=== PATIENT | female | born 1940 | race Caucasian/White ===

== ENCOUNTER 2016-10-17 09:00 | Inpatient (IN) | payer OTHER ==
[~2016-10-17] VITALS: Ht 165.1 cm; Wt 72.3 kg
[~2016-10-17 09:00] MED LIST: AMLO5TAB2 PO; ASPI-430 PO; ASPI325T4 PO; DILT120C11 PO; DOXY100T PO; FERR325T20 PO; FLUT12AE5 INH; FURO20TA3 PO; FURO40TA6 PO; LISI-170 PO; METO-95 PO; NAPR220C2 PO; OMEG300C PO; OMEP-110 PO; PRED20TA PO; RIVA20TA PO; SIMV20TA3 PO; UMEC1DIS INH
[2016-10-17] MEDS ORDERED: ALBUTEROL/IPRATROPIUM 2.5MG/0.5MG, 3 ML ONE (09:09)
[2016-10-17] MEDS ORDERED: methylPREDNISolone SOD SUCC 125 MG/2 ML ONE (09:19)
[2016-10-17] MEDS ORDERED: ALBUTEROL/IPRATROPIUM 2.5MG/0.5MG, 3 ML NPPB ONE (09:30)
[2016-10-17] MEDS ORDERED: methylPREDNISolone SOD SUCC 125 MG/2 ML IVP ONE (09:30)
[2016-10-17 09:38] LABS: HEMOGLOBIN 11.3 g/dL (11.7-16.4)
[2016-10-17 09:40] LABS: ABG COLLECTION SITE RIGHT RADIAL; COLLATERAL CIRCULATION TESTING NORMAL
[2016-10-17 09:41] LABS: FIO2 45 %
[2016-10-17 09:50] LABS: ASPARTATE AMINO TRANSFERASE 12 U/L (15-37); BLOOD UREA NITROGEN 17 mg/dL (7-18)
[2016-10-17 10:01] LABS: IS PT STATUS REG ER OR PRE ER? YES
[2016-10-17] MEDS ORDERED: DILTIAZEM 125 MG in SODIUM CHLORIDE 0.9% 100 ML IV PRN ×2 (10:11→21:30)
[2016-10-17] MEDS ORDERED: DILTIAZEM 5 MG/ML, 5ML ONE (10:21)
[2016-10-17] MEDS ORDERED: DILTIAZEM 5 MG/ML, 5ML IVPush ONE (10:30)
[2016-10-17] MEDS ORDERED: ACETAMINOPHEN 325 MG TABLET PO PRN (11:00)
[2016-10-17] MEDS ORDERED: LABETALOL 5MG/ML, 20ML IV PRN (11:00)
[2016-10-17] MEDS: methylPREDNISolone SOD SUCC 40 MG/ML IVPush SCH ×3 (11:00→22:51)
[2016-10-17] MEDS: ALBUTEROL/IPRATROPIUM 2.5MG/0.5MG, 3 ML NPPB SCH ×3 (14:45→22:13)
[2016-10-17] MEDS ORDERED: ALBUTEROL/IPRATROPIUM 2.5MG/0.5MG, 3 ML NPPB SCH (15:00)
[2016-10-17] MEDS: INSULIN ASPART 100 UNITS/ML, PEN SQ-INSULIN SCH ×2 (16:00→20:50)
[2016-10-17 16:35] LABS: IS PT STATUS REG ER OR PRE ER? NO
[2016-10-17 17:14] VITALS: BP 125/60
[2016-10-17] MEDS: FERROUS SULFATE 325 MG TABLET PO SCH (20:46)
[2016-10-17] MEDS ORDERED: OMEPRAZOLE 20 MG CAPSULE.DR PO SCH (21:00)
[2016-10-18] MEDS: ALBUTEROL/IPRATROPIUM 2.5MG/0.5MG, 3 ML NPPB SCH ×5 (01:47→21:57)
[2016-10-18 04:00] VITALS: BP 122/66
[2016-10-18 04:46] LABS: HEMOGLOBIN 10.4 g/dL (11.7-16.4)
[2016-10-18 04:47] LABS: ABG COLLECTION SITE RIGHT RADIAL; COLLATERAL CIRCULATION TESTING NORMAL
[2016-10-18 04:56] LABS: BLOOD UREA NITROGEN 22 mg/dL (7-18)
[2016-10-18] MEDS: methylPREDNISolone SOD SUCC 40 MG/ML IVPush SCH ×3 (04:59→15:46)
[2016-10-18] MEDS: INSULIN ASPART 100 UNITS/ML, PEN SQ-INSULIN SCH ×4 (07:00→19:41)
[2016-10-18] MEDS ORDERED: POTASSIUM CHLORIDE 20 MEQ in SODIUM CHLORIDE 0.45% 1,000 ML IV SCH (07:30)
[2016-10-18] MEDS ORDERED: AZITHROMYCIN 500 MG in SODIUM CHLORIDE 0.9% 250 ML IV SCH (07:30)
[2016-10-18] MEDS: FERROUS SULFATE 325 MG TABLET PO SCH ×2 (08:15→19:44)
[2016-10-18] MEDS: PANTOPROZOLE 40MG TABLET PO SCH (08:15)
[2016-10-18] MEDS: LISINOPRIL 20 MG TABLET PO SCH (08:15)
[2016-10-18] MEDS: RIVAROXABAN 20 MG TABLET PO SCH (08:16)
[2016-10-18] MEDS: FUROSEMIDE 40 MG TABLET PO SCH (08:16)
[2016-10-18] MEDS ORDERED: DIGOXIN 0.25 MG TABLET PO ONE (11:30)
[2016-10-18] MEDS ORDERED: FUROSEMIDE 20 MG/2 ML IV ONE (16:30)
[2016-10-18] MEDS: DIGOXIN 0.25 MG TABLET PO SCH (16:55)
[2016-10-19] MEDS: DIGOXIN 0.25 MG TABLET PO SCH ×2 (00:08→04:46)
[2016-10-19] MEDS: methylPREDNISolone SOD SUCC 40 MG/ML IVPush SCH ×5 (00:09→22:48)
[2016-10-19] MEDS: ALBUTEROL/IPRATROPIUM 2.5MG/0.5MG, 3 ML NPPB SCH ×6 (02:23→22:00)
[2016-10-19 04:56] VITALS: BP 111/52
[2016-10-19 05:10] LABS: BLOOD UREA NITROGEN 27 mg/dL (7-18)
[2016-10-19] MEDS: FERROUS SULFATE 325 MG TABLET PO SCH ×2 (07:40→20:48)
[2016-10-19] MEDS: RIVAROXABAN 20 MG TABLET PO SCH (07:40)
[2016-10-19] MEDS: LISINOPRIL 20 MG TABLET PO SCH (07:41)
[2016-10-19] MEDS: AZITHROMYCIN 500 MG TABLET PO SCH (07:41)
[2016-10-19] MEDS: PANTOPROZOLE 40MG TABLET PO SCH (07:41)
[2016-10-19] MEDS: FUROSEMIDE 40 MG TABLET PO SCH (07:41)
[2016-10-19] MEDS: INSULIN ASPART 100 UNITS/ML, PEN SQ-INSULIN SCH (07:52)
[2016-10-19] MEDS ORDERED: DIGOXIN 0.125 MG TABLET PO SCH (12:00)
[2016-10-19 13:49] VITALS: BP 114/53
[2016-10-19 19:26] VITALS: BP 123/58
[2016-10-20] MEDS: ALBUTEROL/IPRATROPIUM 2.5MG/0.5MG, 3 ML NPPB SCH ×6 (01:59→23:49)
[2016-10-20 02:38] VITALS: BP 114/63
[2016-10-20] MEDS: methylPREDNISolone SOD SUCC 40 MG/ML IVPush SCH (04:54)
[2016-10-20 07:25] VITALS: BP 134/40
[2016-10-20] MEDS: METOPROLOL SUCCINATE 50 MG TAB.ER.24H PO SCH (08:22)
[2016-10-20] MEDS: RIVAROXABAN 20 MG TABLET PO SCH (08:23)
[2016-10-20] MEDS: FUROSEMIDE 40 MG TABLET PO SCH (08:23)
[2016-10-20] MEDS: PANTOPROZOLE 40MG TABLET PO SCH (08:23)
[2016-10-20] MEDS: FERROUS SULFATE 325 MG TABLET PO SCH ×2 (08:23→21:00)
[2016-10-20] MEDS: LISINOPRIL 20 MG TABLET PO SCH (08:23)
[2016-10-20] MEDS: AZITHROMYCIN 500 MG TABLET PO SCH (08:23)
[2016-10-20 13:23] VITALS: BP 125/70
[2016-10-20] MEDS ORDERED: FUROSEMIDE 20 MG/2 ML IV ONE (13:30)
[2016-10-20] MEDS: GUAIFENESIN 200 MG TABLET PO SCH ×3 (13:30→21:00)
[2016-10-20 20:05] VITALS: BP 105/74
[2016-10-21 02:08] VITALS: BP 120/78
[2016-10-21] MEDS: ALBUTEROL/IPRATROPIUM 2.5MG/0.5MG, 3 ML NPPB SCH ×4 (03:29→13:50)
[2016-10-21 05:35] VITALS: BP 130/70
[2016-10-21] MEDS: METOPROLOL SUCCINATE 50 MG TAB.ER.24H PO SCH (05:49)
[2016-10-21] MEDS: GUAIFENESIN 200 MG TABLET PO SCH ×2 (05:49→11:23)
[2016-10-21 06:39] LABS: BLOOD UREA NITROGEN 30 mg/dL (7-18)
[2016-10-21] MEDS: PANTOPROZOLE 40MG TABLET PO SCH (07:54)
[2016-10-21] MEDS: RIVAROXABAN 20 MG TABLET PO SCH (07:54)
[2016-10-21] MEDS: FUROSEMIDE 40 MG TABLET PO SCH (07:55)
[2016-10-21] MEDS: LISINOPRIL 20 MG TABLET PO SCH (07:55)
[2016-10-21] MEDS: FERROUS SULFATE 325 MG TABLET PO SCH (07:55)
[2016-10-21 07:59] VITALS: BP 135/69
[2016-10-21] MEDS ORDERED: METO100T11 PO (10:18)
[2016-10-21] MEDS ORDERED: PRED20TA PO (10:18)
[2016-10-21] MEDS ORDERED: PRED10TA PO (11:59)
== END 2016-10-21 14:05 | disposition home or self-care (01) | DRG 291 ==
LOC: ED 09:17 → EDIP 10:24 → CSU 14:46 → 5SO 10-19 10:48
PROVIDERS: ADMIT Family Medicine; ATTEND Family Medicine
PROC: 5A09457 Assistance with Respiratory Ventilation, 24-96 Consecutive Hours, Continuous Positive Airway Pressure (ICD-10-PCS; principal; 2016-10-18)
DX: I11.0 Hypertensive heart disease with heart failure (principal); J96.20 Acute and chronic respiratory failure, unspecified whether with hypoxia or hypercapnia; J44.1 Chronic obstructive pulmonary disease with (acute) exacerbation; D68.59 Other primary thrombophilia; E87.2 Acidosis; I50.33 Acute on chronic diastolic (congestive) heart failure; I48.0 Paroxysmal atrial fibrillation; I27.2 Other secondary pulmonary hypertension; I48.2 Chronic atrial fibrillation; D50.9 Iron deficiency anemia, unspecified; I08.1 Rheumatic disorders of both mitral and tricuspid valves; Z51.5 Encounter for palliative care; Z90.710 Acquired absence of both cervix and uterus; Z87.891 Personal history of nicotine dependence; Z87.11 Personal history of peptic ulcer disease; Z79.01 Long term (current) use of anticoagulants; Z66 Do not resuscitate
CPT/HCPCS: 36415; 36600; 71010; 80048; 80053; 80162; 82040; 82803; 82962; 83605; 83735; 83880; 84100; 84145; 84484; 85025; 85610; 87040; 87081; 93005; 94640; 94660; 96374; 96375; J0456; J3480; J7620; J1940; J2920; J2930; J7050; J7512; Q0177

== ENCOUNTER 2017-10-11 01:01 | Inpatient (IN) | payer OTHER ==
[~2017-10-11] VITALS: Ht 165.1 cm; Wt 82.5 kg
[~2017-10-11 01:01] MED LIST changes: +ASPI325T17 PO; -ASPI325T4 PO; +FERR325T18 PO; -FERR325T20 PO; +METO-290 PO; +PRED10TA PO
[2017-10-11] MEDS ORDERED: CEFTRIAXONE PMX 1GM/50ML 50 ML ONE (01:25)
[2017-10-11] MEDS ORDERED: ONDANSETRON 2MG/ML, 2ML ONE (01:25)
[2017-10-11] MEDS ORDERED: methylPREDNISolone SOD SUCC 125 MG/2 ML ONE (01:25)
[2017-10-11] MEDS ORDERED: ALBUTEROL 0.5%, 20ML NPPB SCH (01:30)
[2017-10-11] MEDS ORDERED: SODIUM CHLORIDE 0.9% 1,000ML IVBOLUS ONE ×2 (01:30→02:00)
[2017-10-11] MEDS ORDERED: AZITHROMYCIN 500 MG in SODIUM CHLORIDE 0.9% 250 ML IVPB ONE (01:30)
[2017-10-11] MEDS ORDERED: CEFTRIAXONE PMX 1GM/50ML 50 ML IVPB ONE (01:30)
[2017-10-11] MEDS ORDERED: methylPREDNISolone SOD SUCC 125 MG/2 ML IVP ONE (01:30)
[2017-10-11] MEDS ORDERED: IPRATROPIUM 0.5 MG/2.5 ML INHA NPPB SCH (01:30)
[2017-10-11] MEDS ORDERED: SODIUM CHLORIDE FLUSH 10ML SYR IVF ONE (01:30)
[2017-10-11] MEDS ORDERED: ONDANSETRON 2MG/ML, 2ML IVP ONE (01:30)
[2017-10-11] MEDS ORDERED: SODIUM CHLORIDE 0.9% 1,000 ML IV ONE (01:34)
[2017-10-11 01:44] LABS: INTERNATIONAL NORMALIZED RATIO 1.13 (0.93-1.1); PROTHROMBIN TIME 11.7 Seconds (9.6-11.5)
[2017-10-11 01:46] LABS: BASOPHILS # (AUTO) 0.04 x10^3/uL (0-0.1); BASOPHILS % (AUTO) 0 % (0-1); EOSINOPHILS # (AUTO) 0.31 x10^3/uL (0-0.4); EOSINOPHILS % (AUTO) 3 % (1-7); LYMPHOCYTES # (AUTO) 1.85 x10^3/uL (1-3.4); LYMPHOCYTES % (AUTO) 20 % (22-44); MD NO; MEAN CORPUSCULAR HEMOGLOBIN 29.9 pg (27.0-34.8); MEAN CORPUSCULAR HGB CONC 30.8 g/dL (32.4-35.8); MEAN CORPUSCULAR VOLUME 97.1 fL (80-100); MEAN PLATELET VOLUME 8.9 fL (7.4-10.4); MONOCYTES # (AUTO) 0.88 x10^3/uL (0.2-0.8); MONOCYTES % (AUTO) 9 % (2-9); NEUTROPHILS % (AUTO) 68 % (42-75); PLATELET COUNT 294 x10^3/uL (130-400); RED BLOOD COUNT 4.12 x10^6/uL (3.82-5.3); RED CELL DISTRIBUTION WIDTH 15.7 % (9.6-15.2)
[2017-10-11 01:48] LABS: ALANINE AMINOTRANSFERASE 18 U/L (12-78); ALBUMIN 3.5 g/dL (3.4-5.0); ANION GAP 4 mmol/L (5-15); CALCIUM 8.6 mg/dL (8.5-10.1); CHLORIDE 100 mmol/L (98-107); CREATININE 1.07 mg/dL (0.55-1.02)
[2017-10-11 01:52] LABS: ALKALINE PHOSPHATASE 109 U/L (45-117); BILIRUBIN,TOTAL 0.5 mg/dL (0.2-1.0); TOTAL PROTEIN 7.4 g/dL (6.4-8.2); TROPONIN I < 0.015 ng/mL (0.000-0.045)
[2017-10-11] MEDS ORDERED: MIDAZOLAM 1 MG/ML, 5ML IVPush ONE (02:00)
[2017-10-11] MEDS ORDERED: ETOMIDATE 20 MG/10 ML IV ONE (02:00)
[2017-10-11] MEDS ORDERED: SUCCINYLCHOLINE 20 MG/ML, 10ML IVPush ONE (02:00)
[2017-10-11] MEDS ORDERED: DILTIAZEM 5 MG/ML, 5ML ONE (02:25)
[2017-10-11] MEDS ORDERED: DILTIAZEM 5 MG/ML, 5ML IVPush ONE (02:30)
[2017-10-11] MEDS ORDERED: MIDAZOLAM HCL 25 MG in SODIUM CHLORIDE 0.9% 245 ML IV PRN (02:40)
[2017-10-11] MEDS ORDERED: FAMOTIDINE 20 MG/2 ML IV SCH (03:00)
[2017-10-11] MEDS ORDERED: AZITHROMYCIN 500 MG in SODIUM CHLORIDE 0.9% 250 ML IVPB SCH (03:00)
[2017-10-11] MEDS ORDERED: PHARMACY MAY ADJ FOR RENAL FX MC PRN (03:00)
[2017-10-11] MEDS ORDERED: LIDOCAINE-MPF 1%, 2ML ENDO PRN (03:00)
[2017-10-11] MEDS ORDERED: MIDAZOLAM 1 MG/ML, 2ML IVPush PRN (03:00)
[2017-10-11 03:15] LABS: CULTURE INDICATED? YES; MICROSCOPIC INDICATED
[2017-10-11] MEDS: methylPREDNISolone SOD SUCC 40 MG/ML IV SCH ×3 (03:30→19:39)
[2017-10-11] MEDS: SODIUM CHLORIDE 0.9%, 500ML IVBOLUS PRN ×4 (03:49→05:28)
[2017-10-11] MEDS ORDERED: FAMOTIDINE 20 MG/2 ML ONE (03:51)
[2017-10-11] MEDS ORDERED: DILTIAZEM 5 MG/ML, 5ML IVPush PRN (04:00)
[2017-10-11] MEDS ORDERED: ALBUTEROL/IPRATROPIUM 2.5MG/0.5MG, 3 ML ONE (06:30)
[2017-10-11] MEDS: ALBUTEROL/IPRATROPIUM 2.5MG/0.5MG, 3 ML INLINE SCH ×5 (06:36→22:11)
[2017-10-11] MEDS ORDERED: MIDAZOLAM 1 MG/ML, 2ML ONE (08:00)
[2017-10-11] MEDS ORDERED: ETOMIDATE 20 MG/10 ML ONE (08:00)
[2017-10-11] MEDS ORDERED: SUCCINYLCHOLINE 20 MG/ML, 10ML ONE (08:00)
[2017-10-11] MEDS ORDERED: PROPOFOL 10 MG/ML, 100ML IV ONE (08:00)
[2017-10-11] MEDS ORDERED: RIVAROXABAN 20 MG TABLET ONE (08:03)
[2017-10-11] MEDS ORDERED: DOXYCYCLINE 100MG TABLET ONE (08:03)
[2017-10-11] MEDS ORDERED: PANTOPRAZOLE 40 MG IV ONE (08:03)
[2017-10-11] MEDS ORDERED: PROPOFOL 100 ML IV ONE (08:17)
[2017-10-11] MEDS: PANTOPRAZOLE 40 MG IV IVPush SCH (08:19)
[2017-10-11] MEDS: RIVAROXABAN 20 MG TABLET NG SCH (08:19)
[2017-10-11] MEDS: PROPOFOL 100 ML IV PRN ×2 (08:20→14:30)
[2017-10-11] MEDS ORDERED: DOXYCYCLINE 100MG TABLET PO SCH (09:00)
[2017-10-11] MEDS: DOXYCYCLINE 100 MG in DEXTROSE 5% 250 ML IV SCH ×2 (10:10→21:41)
[2017-10-11] MEDS: INSULIN LISPRO 100 UNITS/ML, PEN SQ-INSULIN SCH ×3 (10:52→21:00)
[2017-10-11] MEDS ORDERED: MAGNESIUM SULFATE PMX 2GM/50ML 50 ML IV ONE ×2 (11:00→16:00)
[2017-10-11] MEDS ORDERED: methylPREDNISolone SOD SUCC 40 MG/ML ONE (11:22)
[2017-10-11 12:08] LABS: HEMOGLOBIN A1C 4.8 % (4.2-6.3)
[2017-10-11] MEDS: RISPERIDONE 1 MG TABLET PO SCH ×2 (13:28→21:42)
[2017-10-11] MEDS ORDERED: METOPROLOL SUCCINATE 50 MG TAB.ER.24H ONE (15:09)
[2017-10-11] MEDS ORDERED: METOPROLOL TARTRATE 50 MG TABLET PO SCH (15:15)
[2017-10-11] MEDS ORDERED: DIGOXIN 0.25 MG/ML, 2ML IVPush ONE (16:00)
[2017-10-11] MEDS ORDERED: RISPERIDONE 1 MG TABLET PO SCH (21:00)
[2017-10-11] MEDS: METOPROLOL TARTRATE 25 MG TABLET PO SCH (21:00)
[2017-10-11] MEDS: FENTANYL PF 100 MCG/2ML IVPush PRN (21:57)
[2017-10-12] MEDS: PROPOFOL 100 ML IV PRN ×2 (01:15→05:53)
[2017-10-12] MEDS: ALBUTEROL/IPRATROPIUM 2.5MG/0.5MG, 3 ML INLINE SCH ×5 (03:00→18:19)
[2017-10-12] MEDS: INSULIN LISPRO 100 UNITS/ML, PEN SQ-INSULIN SCH ×4 (03:00→21:00)
[2017-10-12] MEDS: FENTANYL PF 100 MCG/2ML IVPush PRN (03:21)
[2017-10-12] MEDS: METOPROLOL TARTRATE 25 MG TABLET PO SCH ×4 (03:28→21:44)
[2017-10-12] MEDS: methylPREDNISolone SOD SUCC 40 MG/ML IV SCH ×3 (03:28→20:12)
[2017-10-12 04:00] VITALS: BP 93/54
[2017-10-12 04:37] LABS: BASOPHILS % (AUTO) 0 % (0-1); EOSINOPHILS % (AUTO) 0 % (1-7); LYMPHOCYTES # (AUTO) 0.35 x10^3/uL (1-3.4); LYMPHOCYTES % (AUTO) 3 % (22-44); MD NO; MEAN CORPUSCULAR HEMOGLOBIN 30.7 pg (27.0-34.8); MEAN CORPUSCULAR HGB CONC 32.6 g/dL (32.4-35.8); MEAN CORPUSCULAR VOLUME 94.1 fL (80-100); MEAN PLATELET VOLUME 8.9 fL (7.4-10.4); MONOCYTES # (AUTO) 0.57 x10^3/uL (0.2-0.8); MONOCYTES % (AUTO) 5 % (2-9); NEUTROPHILS # (AUTO) 10.76 x10^3/uL (1.8-6.8); NEUTROPHILS % (AUTO) 92 % (42-75); PLATELET COUNT 210 x10^3/uL (130-400); RED BLOOD COUNT 3.45 x10^6/uL (3.82-5.3); RED CELL DISTRIBUTION WIDTH 15.3 % (9.6-15.2)
[2017-10-12 04:46] LABS: ANION GAP 7 mmol/L (5-15); CALCIUM 8.1 mg/dL (8.5-10.1); CHLORIDE 104 mmol/L (98-107)
[2017-10-12 04:48] LABS: CREATININE 0.97 mg/dL (0.55-1.02)
[2017-10-12] MEDS: RIVAROXABAN 20 MG TABLET NG SCH (05:54)
[2017-10-12] MEDS ORDERED: POTASSIUM CHLORIDE 20 MEQ TAB.ER.PRT PO ONE (08:30)
[2017-10-12] MEDS ORDERED: CHOLECALCIFEROL 400 UNITS TABLET PO SCH (09:00)
[2017-10-12] MEDS: RISPERIDONE 1 MG TABLET PO SCH (09:28)
[2017-10-12] MEDS: PANTOPRAZOLE 40 MG IV IVPush SCH (09:28)
[2017-10-12] MEDS: DOXYCYCLINE 100 MG in DEXTROSE 5% 250 ML IV SCH ×2 (09:34→21:48)
[2017-10-12] MEDS ORDERED: DILTIAZEM 125 MG in SODIUM CHLORIDE 0.9% 100 ML IV PRN ×2 (11:30→18:15)
[2017-10-12] MEDS ORDERED: DILTIAZEM 5 MG/ML, 5ML IVPush ONE (11:30)
[2017-10-12] MEDS: CHOLECALCIFEROL 400 UNITS/ML ORAL SOL PO SCH ×3 (12:02→22:09)
[2017-10-12] MEDS: DIGOXIN 0.25 MG/ML, 2ML IVPush SCH ×2 (16:18→21:45)
[2017-10-13] MEDS ORDERED: FUROSEMIDE 40 MG/4 ML IV ONE (00:30)
[2017-10-13] MEDS: INSULIN LISPRO 100 UNITS/ML, PEN SQ-INSULIN SCH ×4 (03:00→21:00)
[2017-10-13] MEDS: METOPROLOL TARTRATE 25 MG TABLET PO SCH ×4 (03:00→21:00)
[2017-10-13 04:00] VITALS: BP 100/52
[2017-10-13] MEDS: methylPREDNISolone SOD SUCC 40 MG/ML IV SCH ×3 (04:20→19:57)
[2017-10-13 05:16] LABS: ANION GAP 2 mmol/L (5-15); CALCIUM 8.6 mg/dL (8.5-10.1); CHLORIDE 106 mmol/L (98-107)
[2017-10-13 05:19] LABS: CREATININE 1.11 mg/dL (0.55-1.02)
[2017-10-13 05:28] LABS: MEAN CORPUSCULAR HEMOGLOBIN 30.2 pg (27.0-34.8); MEAN CORPUSCULAR VOLUME 97.6 fL (80-100); MEAN PLATELET VOLUME 8.8 fL (7.4-10.4); PLATELET COUNT 215 x10^3/uL (130-400); RED BLOOD COUNT 3.67 x10^6/uL (3.82-5.3); RED CELL DISTRIBUTION WIDTH 16.4 % (9.6-15.2)
[2017-10-13] MEDS ORDERED: MIDAZOLAM 1 MG/ML, 5ML IVPush STA (05:43)
[2017-10-13 05:47] LABS: BASOPHILS # (AUTO) 0.03 x10^3/uL (0-0.1); BASOPHILS % (AUTO) 0 % (0-1); EOSINOPHILS % (AUTO) 0 % (1-7); LYMPHOCYTES # (AUTO) 0.36 x10^3/uL (1-3.4); LYMPHOCYTES % (AUTO) 3 % (22-44); MD SCAN; MONOCYTES % (AUTO) 2 % (2-9); NEUTROPHILS # (AUTO) 12.52 x10^3/uL (1.8-6.8); NEUTROPHILS % (AUTO) 95 % (42-75)
[2017-10-13] MEDS: ALBUTEROL/IPRATROPIUM 2.5MG/0.5MG, 3 ML INLINE SCH ×4 (06:37→18:10)
[2017-10-13] MEDS: RIVAROXABAN 20 MG TABLET NG SCH (06:48)
[2017-10-13 07:29] LABS: MICROSCOPIC INDICATED
[2017-10-13 08:10] LABS: CULTURE INDICATED? YES
[2017-10-13] MEDS: DOXYCYCLINE 100 MG in DEXTROSE 5% 250 ML IV SCH ×2 (09:46→21:49)
[2017-10-13] MEDS: PANTOPRAZOLE 40 MG IV IVPush SCH (09:46)
[2017-10-13] MEDS: DIGOXIN 0.25 MG TABLET PO SCH (09:46)
[2017-10-13] MEDS ORDERED: DILTIAZEM 125 MG in SODIUM CHLORIDE 0.9% 100 ML IV PRN (11:30)
[2017-10-13] MEDS: CHOLECALCIFEROL 400 UNITS/ML ORAL SOL PO SCH ×3 (11:39→21:48)
[2017-10-13] MEDS ORDERED: MIDAZOLAM 1 MG/ML, 5ML ONE ×2 (14:00)
[2017-10-13] MEDS ORDERED: PROPOFOL 10 MG/ML, 100ML IV ONE ×2 (14:00)
[2017-10-13] MEDS ORDERED: VECURONIUM 10 MG ONE ×2 (14:00)
[2017-10-13] MEDS: PROPOFOL 100 ML IV PRN ×2 (14:08→20:03)
[2017-10-14] MEDS: INSULIN LISPRO 100 UNITS/ML, PEN SQ-INSULIN SCH ×4 (03:00→21:12)
[2017-10-14] MEDS: METOPROLOL TARTRATE 25 MG TABLET PO SCH ×2 (03:45→17:50)
[2017-10-14] MEDS: methylPREDNISolone SOD SUCC 40 MG/ML IV SCH ×3 (03:45→20:17)
[2017-10-14 04:00] VITALS: BP 118/55
[2017-10-14 04:26] LABS: ANION GAP 6 mmol/L (5-15); CALCIUM 7.9 mg/dL (8.5-10.1); CHLORIDE 104 mmol/L (98-107); CREATININE 0.97 mg/dL (0.55-1.02); TRIGLYCERIDES 87 mg/dL (50-200)
[2017-10-14 04:31] LABS: BASOPHILS # (AUTO) 0.01 x10^3/uL (0-0.1); BASOPHILS % (AUTO) 0 % (0-1); EOSINOPHILS # (AUTO) 0.01 x10^3/uL (0-0.4); EOSINOPHILS % (AUTO) 0 % (1-7); LYMPHOCYTES # (AUTO) 0.18 x10^3/uL (1-3.4); LYMPHOCYTES % (AUTO) 2 % (22-44); MD NO; MEAN CORPUSCULAR HEMOGLOBIN 31.1 pg (27.0-34.8); MEAN CORPUSCULAR VOLUME 94.4 fL (80-100); MEAN PLATELET VOLUME 9.2 fL (7.4-10.4); MONOCYTES # (AUTO) 0.31 x10^3/uL (0.2-0.8); MONOCYTES % (AUTO) 4 % (2-9); NEUTROPHILS # (AUTO) 7.96 x10^3/uL (1.8-6.8); NEUTROPHILS % (AUTO) 94 % (42-75); PLATELET COUNT 206 x10^3/uL (130-400); RED BLOOD COUNT 3.53 x10^6/uL (3.82-5.3); RED CELL DISTRIBUTION WIDTH 15.3 % (9.6-15.2)
[2017-10-14] MEDS: RIVAROXABAN 20 MG TABLET NG SCH (06:00)
[2017-10-14] MEDS: ALBUTEROL/IPRATROPIUM 2.5MG/0.5MG, 3 ML INLINE SCH ×4 (07:00→18:47)
[2017-10-14] MEDS: FUROSEMIDE 40 MG/4 ML IV SCH ×2 (09:02→17:01)
[2017-10-14] MEDS: PANTOPRAZOLE 40 MG IV IVPush SCH (09:03)
[2017-10-14] MEDS: DIGOXIN 0.25 MG TABLET PO SCH (09:04)
[2017-10-14] MEDS: DOXYCYCLINE 100 MG in DEXTROSE 5% 250 ML IV SCH ×2 (09:05→21:13)
[2017-10-14] MEDS: CHOLECALCIFEROL 400 UNITS/ML ORAL SOL PO SCH ×3 (10:40→21:11)
[2017-10-14] MEDS: PROPOFOL 100 ML IV PRN (17:34)
[2017-10-15] MEDS: PROPOFOL 100 ML IV PRN ×3 (00:34→22:58)
[2017-10-15] MEDS: POLYETHYLENE GLYCOL 17 GM PACKET NG PRN (01:46)
[2017-10-15] MEDS: DOCUSATE 50 MG/5 ML, 10ML UDC PO PRN (01:47)
[2017-10-15] MEDS: INSULIN LISPRO 100 UNITS/ML, PEN SQ-INSULIN SCH ×4 (03:00→21:00)
[2017-10-15] MEDS: methylPREDNISolone SOD SUCC 40 MG/ML IV SCH ×3 (03:02→19:49)
[2017-10-15 04:00] VITALS: BP 119/48
[2017-10-15 04:34] LABS: BASOPHILS % (AUTO) 0 % (0-1); EOSINOPHILS % (AUTO) 0 % (1-7); LYMPHOCYTES # (AUTO) 0.31 x10^3/uL (1-3.4); LYMPHOCYTES % (AUTO) 3 % (22-44); MD NO; MEAN CORPUSCULAR HEMOGLOBIN 31.2 pg (27.0-34.8); MEAN CORPUSCULAR HGB CONC 32.8 g/dL (32.4-35.8); MEAN CORPUSCULAR VOLUME 94.9 fL (80-100); MEAN PLATELET VOLUME 8.9 fL (7.4-10.4); MONOCYTES % (AUTO) 5 % (2-9); NEUTROPHILS # (AUTO) 9.15 x10^3/uL (1.8-6.8); NEUTROPHILS % (AUTO) 92 % (42-75); PLATELET COUNT 202 x10^3/uL (130-400); RED BLOOD COUNT 3.77 x10^6/uL (3.82-5.3); RED CELL DISTRIBUTION WIDTH 15.1 % (9.6-15.2)
[2017-10-15 04:54] LABS: ANION GAP 7 mmol/L (5-15); CALCIUM 8.2 mg/dL (8.5-10.1); CHLORIDE 101 mmol/L (98-107); CREATININE 1.06 mg/dL (0.55-1.02)
[2017-10-15] MEDS: RIVAROXABAN 20 MG TABLET NG SCH (05:49)
[2017-10-15] MEDS: METOPROLOL TARTRATE 25 MG TABLET PO SCH ×2 (05:50→18:09)
[2017-10-15] MEDS: ALBUTEROL/IPRATROPIUM 2.5MG/0.5MG, 3 ML INLINE SCH ×4 (06:57→19:01)
[2017-10-15] MEDS: PANTOPRAZOLE 40 MG IV IVPush SCH (08:47)
[2017-10-15] MEDS: DIGOXIN 0.25 MG TABLET PO SCH (08:48)
[2017-10-15] MEDS: CHOLECALCIFEROL 400 UNITS/ML ORAL SOL PO SCH ×3 (09:00→21:33)
[2017-10-15] MEDS: FUROSEMIDE 40 MG/4 ML IV SCH ×2 (10:13→16:58)
[2017-10-15] MEDS: DOXYCYCLINE 100 MG in DEXTROSE 5% 250 ML IV SCH ×2 (10:14→21:17)
[2017-10-15] MEDS ORDERED: ARTIFICIAL TEARS 15 DROP/ML BOTTLE EACHEYE PRN (11:00)
[2017-10-15] MEDS ORDERED: FUROSEMIDE 40 MG/4 ML IV ONE (17:00)
[2017-10-16] MEDS: INSULIN LISPRO 100 UNITS/ML, PEN SQ-INSULIN SCH (03:00)
[2017-10-16] MEDS: methylPREDNISolone SOD SUCC 40 MG/ML IV SCH ×3 (03:22→20:07)
[2017-10-16] MEDS: DOCUSATE 50 MG/5 ML, 10ML UDC PO PRN (03:22)
[2017-10-16] MEDS: POLYETHYLENE GLYCOL 17 GM PACKET NG PRN (03:22)
[2017-10-16 04:00] VITALS: BP 96/52
[2017-10-16] MEDS: PROPOFOL 100 ML IV PRN (04:26)
[2017-10-16 04:32] LABS: BASOPHILS # (AUTO) 0.02 x10^3/uL (0-0.1); BASOPHILS % (AUTO) 0 % (0-1); EOSINOPHILS % (AUTO) 0 % (1-7); LYMPHOCYTES # (AUTO) 0.35 x10^3/uL (1-3.4); LYMPHOCYTES % (AUTO) 3 % (22-44); MD NO; MEAN CORPUSCULAR HEMOGLOBIN 30.5 pg (27.0-34.8); MEAN CORPUSCULAR VOLUME 95.4 fL (80-100); MEAN PLATELET VOLUME 8.9 fL (7.4-10.4); MONOCYTES # (AUTO) 0.81 x10^3/uL (0.2-0.8); MONOCYTES % (AUTO) 8 % (2-9); NEUTROPHILS # (AUTO) 9.23 x10^3/uL (1.8-6.8); NEUTROPHILS % (AUTO) 89 % (42-75); PLATELET COUNT 231 x10^3/uL (130-400); RED BLOOD COUNT 3.93 x10^6/uL (3.82-5.3); RED CELL DISTRIBUTION WIDTH 15.1 % (9.6-15.2)
[2017-10-16 04:46] LABS: ANION GAP 8 mmol/L (5-15); CALCIUM 8.4 mg/dL (8.5-10.1); CHLORIDE 97 mmol/L (98-107)
[2017-10-16 05:01] LABS: CREATININE 1.04 mg/dL (0.55-1.02)
[2017-10-16] MEDS: RIVAROXABAN 20 MG TABLET NG SCH (06:25)
[2017-10-16] MEDS: METOPROLOL TARTRATE 25 MG TABLET PO SCH ×2 (06:26→18:14)
[2017-10-16] MEDS: ALBUTEROL/IPRATROPIUM 2.5MG/0.5MG, 3 ML INLINE SCH (06:57)
[2017-10-16] MEDS ORDERED: FUROSEMIDE 40 MG/4 ML IV ONE (08:30)
[2017-10-16] MEDS: DOXYCYCLINE 100 MG in DEXTROSE 5% 250 ML IV SCH ×2 (09:24→21:40)
[2017-10-16] MEDS: DIGOXIN 0.25 MG TABLET PO SCH (09:24)
[2017-10-16] MEDS: PANTOPRAZOLE 40 MG IV IVPush SCH (09:24)
[2017-10-16] MEDS: CHOLECALCIFEROL 400 UNITS/ML ORAL SOL PO SCH ×3 (09:55→22:05)
[2017-10-16] MEDS: ALBUTEROL/IPRATROPIUM 2.5MG/0.5MG, 3 ML NPPB SCH ×3 (11:00→19:00)
[2017-10-16] MEDS: MELATONIN 5 MG TABLET PO PRN (23:18)
[2017-10-17] MEDS: methylPREDNISolone SOD SUCC 40 MG/ML IV SCH (03:33)
[2017-10-17 04:00] VITALS: BP 104/51
[2017-10-17] MEDS: DOCUSATE 50 MG/5 ML, 10ML UDC PO PRN (04:21)
[2017-10-17 04:36] LABS: BASOPHILS # (AUTO) 0.01 x10^3/uL (0-0.1); BASOPHILS % (AUTO) 0 % (0-1); EOSINOPHILS % (AUTO) 0 % (1-7); LYMPHOCYTES # (AUTO) 0.43 x10^3/uL (1-3.4); LYMPHOCYTES % (AUTO) 4 % (22-44); MD NO; MEAN CORPUSCULAR HEMOGLOBIN 30.5 pg (27.0-34.8); MEAN CORPUSCULAR HGB CONC 31.9 g/dL (32.4-35.8); MEAN CORPUSCULAR VOLUME 95.7 fL (80-100); MEAN PLATELET VOLUME 8.7 fL (7.4-10.4); MONOCYTES # (AUTO) 0.63 x10^3/uL (0.2-0.8); MONOCYTES % (AUTO) 6 % (2-9); NEUTROPHILS # (AUTO) 9.84 x10^3/uL (1.8-6.8); NEUTROPHILS % (AUTO) 90 % (42-75); PLATELET COUNT 241 x10^3/uL (130-400); RED BLOOD COUNT 3.96 x10^6/uL (3.82-5.3); RED CELL DISTRIBUTION WIDTH 15.1 % (9.6-15.2)
[2017-10-17 04:43] LABS: ANION GAP 2 mmol/L (5-15); CALCIUM 8.1 mg/dL (8.5-10.1); CHLORIDE 96 mmol/L (98-107); CREATININE 0.89 mg/dL (0.55-1.02); TRIGLYCERIDES 61 mg/dL (50-200)
[2017-10-17] MEDS: RIVAROXABAN 20 MG TABLET NG SCH (06:19)
[2017-10-17] MEDS: METOPROLOL TARTRATE 25 MG TABLET PO SCH ×2 (06:19→17:55)
[2017-10-17] MEDS: ALBUTEROL/IPRATROPIUM 2.5MG/0.5MG, 3 ML NPPB SCH ×4 (06:52→20:09)
[2017-10-17] MEDS: DIGOXIN 0.25 MG TABLET PO SCH (08:49)
[2017-10-17] MEDS: PANTOPRAZOLE 40 MG IV IVPush SCH (08:49)
[2017-10-17] MEDS: CHOLECALCIFEROL 400 UNITS/ML ORAL SOL PO SCH (09:27)
[2017-10-17] MEDS: DOXYCYCLINE 100 MG in DEXTROSE 5% 250 ML IV SCH ×2 (09:27→21:23)
[2017-10-17] MEDS: CHOLECALCIFEROL 400 UNITS TABLET PO SCH ×2 (16:49→21:26)
[2017-10-17] MEDS: MELATONIN 5 MG TABLET PO PRN (21:26)
[2017-10-18 04:00] VITALS: BP 102/49
[2017-10-18] MEDS: RIVAROXABAN 20 MG TABLET NG SCH (05:33)
[2017-10-18] MEDS: METOPROLOL TARTRATE 25 MG TABLET PO SCH ×2 (05:33→16:10)
[2017-10-18] MEDS: ALBUTEROL/IPRATROPIUM 2.5MG/0.5MG, 3 ML NPPB SCH ×4 (06:51→21:50)
[2017-10-18 07:37] LABS: ANION GAP 3 mmol/L (5-15); CALCIUM 8.1 mg/dL (8.5-10.1); CHLORIDE 97 mmol/L (98-107); CREATININE 1.09 mg/dL (0.55-1.02)
[2017-10-18 07:38] LABS: ALANINE AMINOTRANSFERASE 26 U/L (12-78); ALBUMIN 2.6 g/dL (3.4-5.0)
[2017-10-18 07:40] LABS: ALKALINE PHOSPHATASE 70 U/L (45-117); BILIRUBIN,TOTAL 0.4 mg/dL (0.2-1.0); TOTAL PROTEIN 5.6 g/dL (6.4-8.2)
[2017-10-18] MEDS: DIGOXIN 0.25 MG TABLET PO SCH (09:25)
[2017-10-18] MEDS: CHOLECALCIFEROL 400 UNITS TABLET PO SCH ×3 (09:26→21:11)
[2017-10-18] MEDS: PANTOPROZOLE 40MG TABLET PO SCH (09:27)
[2017-10-18] MEDS: DOXYCYCLINE 100 MG in DEXTROSE 5% 250 ML IV SCH ×2 (09:30→22:30)
[2017-10-18 11:23] VITALS: BP 110/70
[2017-10-18 12:47] VITALS: BP 100/58
[2017-10-18 18:32] VITALS: BP 96/54
[2017-10-18] MEDS: MELATONIN 5 MG TABLET PO PRN (21:11)
[2017-10-19 02:57] VITALS: BP 96/60
[2017-10-19 05:36] LABS: ALBUMIN 2.5 g/dL (3.4-5.0); ANION GAP 3 mmol/L (5-15); CALCIUM 7.8 mg/dL (8.5-10.1); CHLORIDE 99 mmol/L (98-107)
[2017-10-19 05:40] LABS: ALANINE AMINOTRANSFERASE 27 U/L (12-78); ALKALINE PHOSPHATASE 67 U/L (45-117); BILIRUBIN,TOTAL 0.5 mg/dL (0.2-1.0); CREATININE 0.85 mg/dL (0.55-1.02); TOTAL PROTEIN 5.2 g/dL (6.4-8.2)
[2017-10-19] MEDS: RIVAROXABAN 20 MG TABLET NG SCH (06:38)
[2017-10-19] MEDS: METOPROLOL TARTRATE 25 MG TABLET PO SCH (06:45)
[2017-10-19 06:55] VITALS: BP 99/60
[2017-10-19] MEDS: ALBUTEROL/IPRATROPIUM 2.5MG/0.5MG, 3 ML NPPB SCH ×2 (07:23→10:59)
[2017-10-19] MEDS: CHOLECALCIFEROL 400 UNITS TABLET PO SCH (08:15)
[2017-10-19] MEDS: PANTOPROZOLE 40MG TABLET PO SCH (08:15)
[2017-10-19] MEDS: DIGOXIN 0.25 MG TABLET PO SCH (08:15)
[2017-10-19] MEDS: DOXYCYCLINE 100 MG in DEXTROSE 5% 250 ML IV SCH (09:17)
[2017-10-19] MEDS ORDERED: DIGO250T PO (13:14)
[2017-10-19] MEDS ORDERED: DOXY100C15 PO (13:14)
[2017-10-19] MEDS ORDERED: PRED10TA PO (13:14)
[2017-10-19] MEDS ORDERED: METO25TA35 PO (13:14)
[2017-10-19 13:20] VITALS: BP 109/67
[2017-10-19] MEDS ORDERED: OMEPRAZOLE 20 MG CAPSULE.DR PO SCH (21:00)
== END 2017-10-19 15:55 | disposition home or self-care (01) | DRG 871 ==
LOC: ED 01:50 → EDIP 01:53 → CCU 12:38 → 4WST 10-18 11:13 → DCLOUNGE 10-19 15:10
PROVIDERS: ADMIT Family Medicine; ATTEND Family Medicine
PROC: 0T9B70Z Drainage of Bladder with Drainage Device, Via Natural or Artificial Opening (ICD-10-PCS; principal; 2017-10-11)
PROC: 5A1945Z Respiratory Ventilation, 24-96 Consecutive Hours (ICD-10-PCS; 2017-10-11)
PROC: 0BH17EZ Insertion of Endotracheal Airway into Trachea, Via Natural or Artificial Opening (ICD-10-PCS; 2017-10-12)
PROC: 5A09357 Assistance with Respiratory Ventilation, Less than 24 Consecutive Hours, Continuous Positive Airway Pressure (ICD-10-PCS; 2017-10-12)
PROC: 5A1945Z Respiratory Ventilation, 24-96 Consecutive Hours (ICD-10-PCS; 2017-10-13)
PROC: 0BH17EZ Insertion of Endotracheal Airway into Trachea, Via Natural or Artificial Opening (ICD-10-PCS; 2017-10-13)
DX: A41.9 Sepsis, unspecified organism (principal); J96.22 Acute and chronic respiratory failure with hypercapnia; J96.21 Acute and chronic respiratory failure with hypoxia; I47.2 Ventricular tachycardia; E87.4 Mixed disorder of acid-base balance; J15.9 Unspecified bacterial pneumonia; I27.21 Secondary pulmonary arterial hypertension; D68.69 Other thrombophilia; I11.0 Hypertensive heart disease with heart failure; I50.32 Chronic diastolic (congestive) heart failure; I48.2 Chronic atrial fibrillation; J44.1 Chronic obstructive pulmonary disease with (acute) exacerbation; J44.0 Chronic obstructive pulmonary disease with (acute) lower respiratory infection; J98.11 Atelectasis; E87.6 Hypokalemia; D50.9 Iron deficiency anemia, unspecified; E21.3 Hyperparathyroidism, unspecified; E66.9 Obesity, unspecified; Z68.30 Body mass index [BMI] 30.0-30.9, adult; E86.0 Dehydration; F10.10 Alcohol abuse, uncomplicated; F17.210 Nicotine dependence, cigarettes, uncomplicated; I34.0 Nonrheumatic mitral (valve) insufficiency; Z79.01 Long term (current) use of anticoagulants; Z86.718 Personal history of other venous thrombosis and embolism; Z87.11 Personal history of peptic ulcer disease; Z90.710 Acquired absence of both cervix and uterus; Z99.81 Dependence on supplemental oxygen
CPT/HCPCS: 31500; 36415; 36600; 71045; 80048; 80053; 80162; 81001; 82306; 82803; 82962; 83036; 83605; 83735; 83880; 83970; 84100; 84145; 84478; 84484; 85025; 85610; 85730; 87040; 87070; 87077; 87081; 87086; 87186; 87205; 93005; 93306; 94002; 94003; 94150; 94640; 94660; 96365; 96367; 96375; J0456; J0696; J1940; J2250; J2405; J2704; J3010; J7060; J7620; C9113; J0330; J1160; J1815; J2920; J2930; J3475; J7030; J7040; J7050; J7512; S0028

== ENCOUNTER 2018-09-21 11:07 | Inpatient (IN) | payer MEDICARE, OTHER ==
[~2018-09-21] VITALS: Ht 165.1 cm; Wt 69.7 kg
[~2018-09-21 11:07] MED LIST changes: +AMLO-150 PO; -AMLO5TAB2 PO; +DIGO250T PO; +DOXY100C15 PO; +FLUT12AE11 INH; -FLUT12AE5 INH; +METO25TA35 PO
[2018-09-21 11:45] LABS: BASOPHILS # (AUTO) 0.04 x10^3/uL (0-0.1); BASOPHILS % (AUTO) 0 % (0-1); EOSINOPHILS # (AUTO) 0.29 x10^3/uL (0-0.4); EOSINOPHILS % (AUTO) 3 % (1-7); LYMPHOCYTES # (AUTO) 0.78 x10^3/uL (1-3.4); LYMPHOCYTES % (AUTO) 8 % (22-44); MD NO; MEAN CORPUSCULAR HEMOGLOBIN 25.7 pg (27.0-34.8); MEAN CORPUSCULAR HGB CONC 31.2 g/dL (32.4-35.8); MEAN CORPUSCULAR VOLUME 82.3 fL (80-100); MEAN PLATELET VOLUME 7.8 fL (7.4-10.4); MONOCYTES # (AUTO) 1.11 x10^3/uL (0.2-0.8); MONOCYTES % (AUTO) 12 % (2-9); NEUTROPHILS # (AUTO) 7.04 x10^3/uL (1.8-6.8); NEUTROPHILS % (AUTO) 76 % (42-75); PLATELET COUNT 427 x10^3/uL (130-400); RED BLOOD COUNT 3.18 x10^6/uL (3.82-5.3); RED CELL DISTRIBUTION WIDTH 20.6 % (9.6-15.2)
--- NOTE | 2018-09-21 11:45 | NUR ---
CRITICAL DIGOXIN LEVEL 2.[address] CALLOWAY AND AYAN CHEN
[2018-09-21 11:54] LABS: ALBUMIN 3.3 g/dL (3.4-5.0); ANION GAP 5 mmol/L (5-15); CALCIUM 8.3 mg/dL (8.5-10.1); CHLORIDE 95 mmol/L (98-107)
[2018-09-21 11:57] LABS: ALANINE AMINOTRANSFERASE 19 U/L (12-78)
[2018-09-21] MEDS ORDERED: FUROSEMIDE 100 MG/10 ML IV ONE (12:00)
[2018-09-21 12:01] LABS: ALKALINE PHOSPHATASE 107 U/L (45-117); BILIRUBIN,TOTAL 0.5 mg/dL (0.2-1.0)
[2018-09-21] MEDS ORDERED: ANORO (12:32)
[2018-09-21] MEDS ORDERED: IPRATROPIUM (12:32)
[2018-09-21] MEDS ORDERED: IPRA3AMP30 INH (12:32)
[2018-09-21] MEDS ORDERED: PROAIR (12:32)
[2018-09-21] MEDS ORDERED: SPIR50TA4 PO (12:32)
[2018-09-21] MEDS ORDERED: FUROSEMIDE 40 MG/4 ML ONE (12:51)
[2018-09-21 12:55] LABS: INTERNATIONAL NORMALIZED RATIO 1.66 (0.93-1.1); PROTHROMBIN TIME 17.1 Seconds (9.6-11.5)
[2018-09-21] MEDS ORDERED: SODIUM CHLORIDE FLUSH 10ML SYR IVF PRN (13:00)
--- NOTE | 2018-09-21 13:13 | NUR ---
ADMITTING DOCTOR AT BEDSIDE
[2018-09-21 13:52] VITALS: BP 126/64
[2018-09-21] MEDS ORDERED: hydrALAzine 20 MG/ML, 1ML IVPush PRN (14:00)
[2018-09-21] MEDS ORDERED: ONDANSETRON ODT 4 MG PO PRN (14:00)
[2018-09-21] MEDS ORDERED: NITROGLYCERIN 0.4 MG BOTTLE (25 TABS) SL PRN (14:00)
[2018-09-21] MEDS ORDERED: GUAIFENESIN/DM 200-20MG, 10ML UDC PO PRN (14:00)
[2018-09-21] MEDS ORDERED: ALBU8.5H8 INH (14:08)
[2018-09-21] MEDS ORDERED: CHOL400C11 PO (14:09)
[2018-09-21 14:34] LABS: TROPONIN I 0.044 ng/mL (0.000-0.045)
[2018-09-21] MEDS ORDERED: ALBUTEROL/IPRATROPIUM 2.5MG/0.5MG, 3 ML NPPB PRN (16:30)
[2018-09-21 16:46] VITALS: BP 126/57
[2018-09-21] MEDS: FUROSEMIDE 40 MG/4 ML IV SCH (16:47)
[2018-09-21 17:54] VITALS: BP 123/61
[2018-09-21] MEDS: CARVEDILOL 3.125 MG TABLET PO SCH (17:55)
[2018-09-21] MEDS ORDERED: ALBUTEROL/IPRATROPIUM 2.5MG/0.5MG, 3 ML NPPB SCH (18:00)
[2018-09-21 18:38] LABS: TROPONIN I 0.058 ng/mL (0.000-0.045)
[2018-09-21] MEDS: BUDESONIDE 0.5 MG/2 ML INHA NPPB SCH (19:34)
[2018-09-21] MEDS: OMEPRAZOLE 20 MG CAPSULE.DR PO SCH (20:03)
[2018-09-21 21:00] VITALS: BP 113/64
[2018-09-21 21:29] LABS: TROPONIN I 0.057 ng/mL (0.000-0.045)
[2018-09-22 01:23] VITALS: BP 109/68
[2018-09-22 05:12] LABS: BASOPHILS % (AUTO) 0 % (0-1); EOSINOPHILS # (AUTO) 0.38 x10^3/uL (0-0.4); EOSINOPHILS % (AUTO) 5 % (1-7); LYMPHOCYTES % (AUTO) 8 % (22-44); MD NO; MEAN CORPUSCULAR HEMOGLOBIN 25.2 pg (27.0-34.8); MEAN CORPUSCULAR HGB CONC 30.7 g/dL (32.4-35.8); MEAN CORPUSCULAR VOLUME 82.1 fL (80-100); MEAN PLATELET VOLUME 7.9 fL (7.4-10.4); MONOCYTES # (AUTO) 1.04 x10^3/uL (0.2-0.8); MONOCYTES % (AUTO) 12 % (2-9); NEUTROPHILS # (AUTO) 6.42 x10^3/uL (1.8-6.8); NEUTROPHILS % (AUTO) 75 % (42-75); PLATELET COUNT 351 x10^3/uL (130-400); RED BLOOD COUNT 3.03 x10^6/uL (3.82-5.3); RED CELL DISTRIBUTION WIDTH 20.7 % (9.6-15.2)
[2018-09-22 05:20] LABS: ANION GAP 2 mmol/L (5-15); CALCIUM 8.4 mg/dL (8.5-10.1); CHLORIDE 97 mmol/L (98-107); CREATININE 1.27 mg/dL (0.55-1.02)
[2018-09-22] MEDS: CARVEDILOL 3.125 MG TABLET PO SCH ×2 (06:25→16:51)
[2018-09-22 07:05] VITALS: BP 125/61
[2018-09-22] MEDS: ALBUTEROL/IPRATROPIUM 2.5MG/0.5MG, 3 ML NPPB SCH ×4 (07:15→20:32)
[2018-09-22] MEDS: FUROSEMIDE 40 MG/4 ML IV SCH ×2 (08:30→15:38)
[2018-09-22] MEDS: OXYcodone IR 5MG TABLET PO PRN (08:30)
[2018-09-22] MEDS: OMEPRAZOLE 20 MG CAPSULE.DR PO SCH ×2 (09:00→22:27)
[2018-09-22] MEDS: FLUTICASONE PROPIONATE INH SCH (09:00)
[2018-09-22] MEDS: TEMPLATE NON-FORMULARY MED. (Umeclidinium Brm/Vilanterol Tr (Anoro Ellipta 62.5-25 Mcg Inh INH SCH (09:00)
[2018-09-22] MEDS: SPIRONOLACTONE 50 MG TABLET PO SCH (09:00)
[2018-09-22] MEDS ORDERED: HEPARIN 5,000 UNITS/ML, 1ML IV PRN (10:00)
[2018-09-22] MEDS ORDERED: HEPARIN 5,000 UNITS/ML, 1ML IV ONE (10:00)
[2018-09-22] MEDS: HEPARIN 25,000 UNITS/500ML PMX 500 ML IV PRN (12:10)
[2018-09-22] MEDS ORDERED: POTASSIUM CHLORIDE 20 MEQ TAB.ER.PRT PO ONE (13:00)
[2018-09-22 13:30] VITALS: BP 119/71
[2018-09-22] MEDS: DOCUSATE 100 MG CAPSULE PO PRN (15:38)
[2018-09-22] MEDS: IRON SUCROSE COMPLEX 100MG/5ML IV SCH (15:38)
[2018-09-22 19:20] VITALS: BP 116/55
[2018-09-22] MEDS: BUDESONIDE 0.5 MG/2 ML INHA NPPB SCH ×2 (20:32→20:36)
[2018-09-23 01:22] VITALS: BP 113/65
[2018-09-23 01:29] LABS: MICROSCOPIC AUTO
[2018-09-23] MEDS: CEFTRIAXONE PMX 1GM/50ML 50 ML IV SCH (03:43)
[2018-09-23 06:20] LABS: ALANINE AMINOTRANSFERASE 20 U/L (12-78); ALBUMIN 3.4 g/dL (3.4-5.0); ANION GAP 4 mmol/L (5-15); CALCIUM 8.6 mg/dL (8.5-10.1); CHLORIDE 95 mmol/L (98-107); CREATININE 1.02 mg/dL (0.55-1.02)
[2018-09-23 06:35] LABS: ALKALINE PHOSPHATASE 98 U/L (45-117); BILIRUBIN,TOTAL 0.3 mg/dL (0.2-1.0); TOTAL PROTEIN 6.8 g/dL (6.4-8.2)
[2018-09-23] MEDS: CARVEDILOL 3.125 MG TABLET PO SCH ×2 (06:52→18:55)
[2018-09-23 07:56] VITALS: BP 101/59
[2018-09-23] MEDS: FLUTICASONE PROPIONATE INH SCH (09:00)
[2018-09-23] MEDS: TEMPLATE NON-FORMULARY MED. (Umeclidinium Brm/Vilanterol Tr (Anoro Ellipta 62.5-25 Mcg Inh INH SCH (09:00)
[2018-09-23] MEDS ORDERED: ALBUTEROL/IPRATROPIUM 2.5MG/0.5MG, 3 ML NPPB PRN (10:00)
[2018-09-23] MEDS: SPIRONOLACTONE 50 MG TABLET PO SCH (10:01)
[2018-09-23] MEDS: FUROSEMIDE 40 MG/4 ML IV SCH ×2 (10:01→18:54)
[2018-09-23] MEDS: OMEPRAZOLE 20 MG CAPSULE.DR PO SCH ×2 (10:01→19:54)
[2018-09-23 12:19] VITALS: BP 105/64
[2018-09-23] MEDS: IRON SUCROSE COMPLEX 100MG/5ML IV SCH (14:43)
[2018-09-23] MEDS: MOVIPREP POWDER 1 PREP KIT PO SCH (14:43)
[2018-09-23 20:06] VITALS: BP 100/51
[2018-09-23] MEDS: HEPARIN 25,000 UNITS/500ML PMX 500 ML IV PRN (21:00)
[2018-09-24 01:12] VITALS: BP 115/64
[2018-09-24] MEDS: CEFTRIAXONE PMX 1GM/50ML 50 ML IV SCH (04:01)
[2018-09-24] MEDS: MOVIPREP POWDER 1 PREP KIT PO SCH (04:17)
[2018-09-24 05:12] LABS: BASOPHILS # (AUTO) 0.01 x10^3/uL (0-0.1); BASOPHILS % (AUTO) 0 % (0-1); EOSINOPHILS # (AUTO) 0.34 x10^3/uL (0-0.4); EOSINOPHILS % (AUTO) 4 % (1-7); LYMPHOCYTES # (AUTO) 1.04 x10^3/uL (1-3.4); LYMPHOCYTES % (AUTO) 12 % (22-44); MD NO; MEAN CORPUSCULAR HEMOGLOBIN 25.2 pg (27.0-34.8); MEAN CORPUSCULAR HGB CONC 30.9 g/dL (32.4-35.8); MEAN CORPUSCULAR VOLUME 81.4 fL (80-100); MEAN PLATELET VOLUME 7.9 fL (7.4-10.4); MONOCYTES # (AUTO) 1.12 x10^3/uL (0.2-0.8); MONOCYTES % (AUTO) 13 % (2-9); NEUTROPHILS # (AUTO) 6.24 x10^3/uL (1.8-6.8); NEUTROPHILS % (AUTO) 71 % (42-75); PLATELET COUNT 377 x10^3/uL (130-400); RED BLOOD COUNT 3.17 x10^6/uL (3.82-5.3); RED CELL DISTRIBUTION WIDTH 21.7 % (9.6-15.2)
[2018-09-24 05:26] LABS: ANION GAP 3 mmol/L (5-15); CALCIUM 8.7 mg/dL (8.5-10.1); CHLORIDE 97 mmol/L (98-107); CREATININE 0.96 mg/dL (0.55-1.02)
[2018-09-24 07:45] VITALS: BP 112/47
[2018-09-24] MEDS: CARVEDILOL 3.125 MG TABLET PO SCH ×2 (08:00→17:29)
[2018-09-24] MEDS: TEMPLATE NON-FORMULARY MED. (Umeclidinium Brm/Vilanterol Tr (Anoro Ellipta 62.5-25 Mcg Inh INH SCH (09:00)
[2018-09-24] MEDS: FLUTICASONE PROPIONATE INH SCH (09:00)
[2018-09-24] MEDS ORDERED: FENTANYL PF 250 MCG/5ML ONE (09:47)
[2018-09-24] MEDS ORDERED: MIDAZOLAM 1 MG/ML, 2ML ONE (09:47)
[2018-09-24] MEDS ORDERED: SUCCINYLCHOLINE 20 MG/ML, 10ML ONE (10:26)
[2018-09-24] MEDS ORDERED: PROPOFOL 10 MG/ML, 20ML ONE (10:26)
[2018-09-24] MEDS ORDERED: ONDANSETRON 2MG/ML, 2ML ONE (10:26)
[2018-09-24] MEDS ORDERED: FENTANYL PF 100 MCG/2ML IV PRN (12:00)
[2018-09-24] MEDS ORDERED: HALOPERIDOL 5 MG/ML IV PRN (12:00)
[2018-09-24] MEDS ORDERED: PROMETHAZINE 25 MG/ML, 1ML IV PRN (12:00)
[2018-09-24] MEDS ORDERED: OXYcodone 5 MG/5 ML ORAL.SOL UDC PO PRN (12:00)
[2018-09-24] MEDS ORDERED: HYDROmorphone 2 MG/ML, 1ML IVPush PRN (12:00)
[2018-09-24] MEDS ORDERED: MEPERIDINE/PF 25MG/0.5ML IVPush PRN (12:00)
[2018-09-24] MEDS ORDERED: ALBUTEROL/IPRATROPIUM 2.5MG/0.5MG, 3 ML NPPB PRN (12:00)
[2018-09-24] MEDS ORDERED: POTASSIUM CHLORIDE 20 MEQ TAB.ER.PRT PO ONE (12:00)
[2018-09-24 13:25] VITALS: BP 105/59
[2018-09-24] MEDS ORDERED: OMNIPAQUE 350 MG/ML, 100ML BOTTLE ONE (15:32)
[2018-09-24] MEDS: SPIRONOLACTONE 50 MG TABLET PO SCH (16:25)
[2018-09-24] MEDS: FUROSEMIDE 40 MG TABLET PO SCH (16:25)
[2018-09-24] MEDS: OMEPRAZOLE 20 MG CAPSULE.DR PO SCH ×2 (16:25→21:40)
[2018-09-24] MEDS: IRON SUCROSE COMPLEX 100MG/5ML IV SCH (16:26)
[2018-09-24 17:29] VITALS: BP 113/56
[2018-09-24 18:52] VITALS: BP 111/63
[2018-09-25] VITALS (7 sets, daily range): BP systolic 95–136; BP diastolic 54–62
[2018-09-25] MEDS: CARVEDILOL 3.125 MG TABLET PO SCH ×2 (06:38→16:56)
[2018-09-25] MEDS ORDERED: FUROSEMIDE 40 MG/4 ML IV ONE (07:30)
[2018-09-25 07:52] LABS: CALCIUM 8.4 mg/dL (8.5-10.1); MEAN CORPUSCULAR HEMOGLOBIN 24.7 pg (27.0-34.8); MEAN CORPUSCULAR HGB CONC 29.7 g/dL (32.4-35.8); MEAN CORPUSCULAR VOLUME 83.1 fL (80-100); MEAN PLATELET VOLUME 8.1 fL (7.4-10.4); PLATELET COUNT 388 x10^3/uL (130-400); RED CELL DISTRIBUTION WIDTH 22.1 % (9.6-15.2)
[2018-09-25 08:04] LABS: CHLORIDE 100 mmol/L (98-107)
[2018-09-25 08:13] LABS: BASOPHILS # (AUTO) 0.02 x10^3/uL (0-0.1); BASOPHILS % (AUTO) 0 % (0-1); EOSINOPHILS % (AUTO) 0 % (1-7); LYMPHOCYTES # (AUTO) 0.77 x10^3/uL (1-3.4); LYMPHOCYTES % (AUTO) 7 % (22-44); MD MORPH REVIEW ONLY; MONOCYTES # (AUTO) 1.33 x10^3/uL (0.2-0.8); MONOCYTES % (AUTO) 12 % (2-9); NEUTROPHILS # (AUTO) 8.88 x10^3/uL (1.8-6.8); NEUTROPHILS % (AUTO) 81 % (42-75)
[2018-09-25 08:14] LABS: ANISOCYTOSIS 2+; HYPOCHROMIA 1+; POLYCHROMASIA 1+; STOMATOCYTES 1+
[2018-09-25 08:18] LABS: <PLATELET ESTIMATE> ADEQUATE; <PLT MORPHOLOGY> NORMAL PLT MORPH; MICROCYTOSIS 1+
[2018-09-25] MEDS ORDERED: REGADENOSON 0.4 MG/5 ML SYRINGE ONE (08:27)
[2018-09-25 08:31] LABS: ANION GAP 4 mmol/L (5-15)
[2018-09-25] MEDS: OMEPRAZOLE 20 MG CAPSULE.DR PO SCH ×2 (10:34→20:55)
[2018-09-25] MEDS: FUROSEMIDE 40 MG TABLET PO SCH ×2 (10:35→16:57)
[2018-09-25] MEDS: SPIRONOLACTONE 50 MG TABLET PO SCH (10:35)
[2018-09-25] MEDS: FLUTICASONE PROPIONATE INH SCH (10:36)
[2018-09-25] MEDS: TEMPLATE NON-FORMULARY MED. (Umeclidinium Brm/Vilanterol Tr (Anoro Ellipta 62.5-25 Mcg Inh INH SCH (10:36)
[2018-09-25] MEDS: HEPARIN 25,000 UNITS/500ML PMX 500 ML IV PRN (14:12)
[2018-09-25] MEDS: IRON SUCROSE COMPLEX 100MG/5ML IV SCH (16:56)
[2018-09-25 21:19] LABS: OCCULT BLOOD POSITIVE (NEGATIVE)
[2018-09-26] MEDS: OXYcodone IR 5MG TABLET PO PRN ×4 (00:10→22:36)
[2018-09-26 00:16] VITALS: BP 111/65
[2018-09-26 05:33] LABS: ANION GAP 3 mmol/L (5-15); CALCIUM 8.4 mg/dL (8.5-10.1); CHLORIDE 100 mmol/L (98-107)
[2018-09-26 05:34] LABS: MEAN CORPUSCULAR HEMOGLOBIN 25.1 pg (27.0-34.8); MEAN CORPUSCULAR HGB CONC 30.3 g/dL (32.4-35.8); MEAN PLATELET VOLUME 7.9 fL (7.4-10.4); PLATELET COUNT 318 x10^3/uL (130-400); RED BLOOD COUNT 2.98 x10^6/uL (3.82-5.3); RED CELL DISTRIBUTION WIDTH 22.3 % (9.6-15.2)
[2018-09-26 06:15] LABS: BASOPHILS % (AUTO) 1 % (0-1); EOSINOPHILS # (AUTO) 0.19 x10^3/uL (0-0.4); EOSINOPHILS % (AUTO) 2 % (1-7); LYMPHOCYTES # (AUTO) 1.02 x10^3/uL (1-3.4); LYMPHOCYTES % (AUTO) 12 % (22-44); MD MORPH REVIEW ONLY; MONOCYTES # (AUTO) 0.94 x10^3/uL (0.2-0.8); MONOCYTES % (AUTO) 11 % (2-9); NEUTROPHILS # (AUTO) 6.63 x10^3/uL (1.8-6.8); NEUTROPHILS % (AUTO) 75 % (42-75)
[2018-09-26 06:16] LABS: ANISOCYTOSIS 2+; HYPOCHROMIA 1+; MICROCYTOSIS 1+; POLYCHROMASIA 1+
[2018-09-26 06:17] LABS: STOMATOCYTES 1+
[2018-09-26 06:18] LABS: <PLATELET ESTIMATE> ADEQUATE; <PLT MORPHOLOGY> NORMAL PLT MORPH
[2018-09-26 06:35] VITALS: BP 110/64
[2018-09-26] MEDS: CARVEDILOL 3.125 MG TABLET PO SCH ×2 (06:36→18:27)
[2018-09-26] MEDS: FUROSEMIDE 40 MG TABLET PO SCH ×2 (06:36→16:49)
[2018-09-26 07:40] VITALS: BP 110/64
[2018-09-26] MEDS: TEMPLATE NON-FORMULARY MED. (Umeclidinium Brm/Vilanterol Tr (Anoro Ellipta 62.5-25 Mcg Inh INH SCH (10:43)
[2018-09-26] MEDS: OMEPRAZOLE 20 MG CAPSULE.DR PO SCH ×2 (10:43→22:25)
[2018-09-26] MEDS: FLUTICASONE PROPIONATE INH SCH (10:43)
[2018-09-26] MEDS: SPIRONOLACTONE 50 MG TABLET PO SCH (10:43)
[2018-09-26] MEDS: NEOMYCIN SULFATE 500 MG TABLET PO SCH ×2 (15:37→16:49)
[2018-09-26] MEDS: HEPARIN 25,000 UNITS/500ML PMX 500 ML IV PRN (15:37)
[2018-09-26] MEDS: metroNIDAZOLE 500 MG TABLET PO SCH ×2 (15:37→16:48)
[2018-09-26 15:40] VITALS: BP 109/67
[2018-09-26] MEDS: IRON SUCROSE COMPLEX 100MG/5ML IV SCH (16:49)
[2018-09-26 18:34] VITALS: BP 95/55
[2018-09-26 22:32] VITALS: BP 113/57
[2018-09-26] MEDS ORDERED: metroNIDAZOLE 500 MG TABLET PO ONE (23:00)
[2018-09-26] MEDS ORDERED: NEOMYCIN SULFATE 500 MG TABLET PO ONE (23:00)
[2018-09-27] VITALS (8 sets, daily range): BP systolic 93–126; BP diastolic 54–68
[2018-09-27 05:49] LABS: CALCIUM 8.4 mg/dL (8.5-10.1); CREATININE 1.16 mg/dL (0.55-1.02)
[2018-09-27 06:06] LABS: ANION GAP 4 mmol/L (5-15); CHLORIDE 98 mmol/L (98-107)
[2018-09-27] MEDS: CARVEDILOL 3.125 MG TABLET PO SCH ×2 (06:06→16:35)
[2018-09-27 06:27] LABS: MEAN CORPUSCULAR HEMOGLOBIN 25.6 pg (27.0-34.8); MEAN CORPUSCULAR HGB CONC 30.5 g/dL (32.4-35.8); MEAN CORPUSCULAR VOLUME 83.7 fL (80-100); MEAN PLATELET VOLUME 8.7 fL (7.4-10.4); PLATELET COUNT 302 x10^3/uL (130-400); RED BLOOD COUNT 2.72 x10^6/uL (3.82-5.3); RED CELL DISTRIBUTION WIDTH 22.7 % (9.6-15.2)
[2018-09-27] MEDS ORDERED: BUPIVACAINE/PF 0.5% ONE (07:02)
[2018-09-27 08:47] LABS: BASOPHILS # (AUTO) 0.08 x10^3/uL (0-0.1); BASOPHILS % (AUTO) 1 % (0-1); EOSINOPHILS # (AUTO) 0.41 x10^3/uL (0-0.4); EOSINOPHILS % (AUTO) 6 % (1-7); LYMPHOCYTES # (AUTO) 0.87 x10^3/uL (1-3.4); LYMPHOCYTES % (AUTO) 13 % (22-44); MD SCAN; MONOCYTES # (AUTO) 0.82 x10^3/uL (0.2-0.8); MONOCYTES % (AUTO) 12 % (2-9); NEUTROPHILS # (AUTO) 4.69 x10^3/uL (1.8-6.8); NEUTROPHILS % (AUTO) 68 % (42-75)
[2018-09-27] MEDS: OMEPRAZOLE 20 MG CAPSULE.DR PO SCH ×2 (11:35→21:00)
[2018-09-27] MEDS: TEMPLATE NON-FORMULARY MED. (Umeclidinium Brm/Vilanterol Tr (Anoro Ellipta 62.5-25 Mcg Inh INH SCH (11:35)
[2018-09-27] MEDS: FLUTICASONE PROPIONATE INH SCH (11:36)
[2018-09-27] MEDS ORDERED: FENTANYL PF 250 MCG/5ML ONE (11:58)
[2018-09-27] MEDS ORDERED: CEFOTETAN 2 GM ONE (13:17)
[2018-09-27] MEDS ORDERED: BUPIVACAINE/PF 0.5% INFIL ONE (13:17)
[2018-09-27] MEDS ORDERED: ROCURONIUM 10MG/ML,5ML ONE (14:35)
[2018-09-27] MEDS ORDERED: PHENYLEPHRINE 10 MG/ML ONE ×2 (14:35)
[2018-09-27] MEDS ORDERED: PROPOFOL 10 MG/ML, 20ML ONE (14:36)
[2018-09-27] MEDS ORDERED: ONDANSETRON 2MG/ML, 2ML ONE (14:36)
[2018-09-27] MEDS ORDERED: MIDAZOLAM 1 MG/ML, 2ML ONE (14:37)
[2018-09-27] MEDS: ERGOCALCIFEROL 50,000 UNIT CAPSULE PO SCH (16:00)
[2018-09-27] MEDS ORDERED: LABETALOL 5MG/ML, 20ML IVPush PRN (16:00)
[2018-09-27] MEDS ORDERED: LIDOCAINE-MPF 1%, 2ML ENDO PRN (16:30)
[2018-09-27] MEDS ORDERED: PHARMACY MAY ADJ FOR RENAL FX MC SCH (16:30)
[2018-09-27] MEDS: PROPOFOL 100 ML IV PRN (16:55)
[2018-09-27] MEDS ORDERED: FUROSEMIDE 20 MG/2 ML IV SCH (17:00)
[2018-09-28] MEDS: PROPOFOL 100 ML IV PRN ×2 (00:33→04:22)
[2018-09-28] MEDS ORDERED: ALBUTEROL/IPRATROPIUM 2.5MG/0.5MG, 3 ML ONE (04:50)
[2018-09-28] MEDS: ALBUTEROL/IPRATROPIUM 2.5MG/0.5MG, 3 ML NPPB SCH ×5 (04:51→18:26)
[2018-09-28] MEDS ORDERED: ALBUTEROL/IPRATROPIUM 2.5MG/0.5MG, 3 ML NPPB PRN (05:00)
[2018-09-28 05:19] LABS: MEAN CORPUSCULAR HGB CONC 31.6 g/dL (32.4-35.8); MEAN CORPUSCULAR VOLUME 85.4 fL (80-100); MEAN PLATELET VOLUME 7.9 fL (7.4-10.4); PLATELET COUNT 277 x10^3/uL (130-400); RED BLOOD COUNT 3.46 x10^6/uL (3.82-5.3); RED CELL DISTRIBUTION WIDTH 22.4 % (9.6-15.2)
[2018-09-28 05:22] LABS: ANION GAP 6 mmol/L (5-15); CALCIUM 8.6 mg/dL (8.5-10.1); CHLORIDE 98 mmol/L (98-107)
[2018-09-28 05:24] LABS: CREATININE 1.22 mg/dL (0.55-1.02)
[2018-09-28] MEDS: CARVEDILOL 3.125 MG TABLET PO SCH ×2 (06:00→17:36)
[2018-09-28 06:46] LABS: ANISOCYTOSIS 2+; BASOPHILS # (AUTO) 0.01 x10^3/uL (0-0.1); BASOPHILS % (AUTO) 0 % (0-1); EOSINOPHILS # (AUTO) 0.18 x10^3/uL (0-0.4); EOSINOPHILS % (AUTO) 2 % (1-7); LYMPHOCYTES # (AUTO) 0.83 x10^3/uL (1-3.4); LYMPHOCYTES % (AUTO) 9 % (22-44); MD MORPH REVIEW ONLY; MONOCYTES # (AUTO) 1.03 x10^3/uL (0.2-0.8); MONOCYTES % (AUTO) 11 % (2-9); NEUTROPHILS # (AUTO) 7.41 x10^3/uL (1.8-6.8); NEUTROPHILS % (AUTO) 78 % (42-75)
[2018-09-28 06:47] LABS: MICROCYTOSIS 1+; POLYCHROMASIA 1+
[2018-09-28 06:48] LABS: HYPOCHROMIA 1+
[2018-09-28 06:50] LABS: <PLATELET ESTIMATE> ADEQUATE; <PLT MORPHOLOGY> NORMAL PLT MORPH
[2018-09-28] MEDS: TEMPLATE NON-FORMULARY MED. (Umeclidinium Brm/Vilanterol Tr (Anoro Ellipta 62.5-25 Mcg Inh INH SCH (08:24)
[2018-09-28] MEDS: OMEPRAZOLE 20 MG CAPSULE.DR PO SCH (08:24)
[2018-09-28] MEDS: AcetaZOLAMIDE INJ 500 MG IVPush SCH ×2 (08:24→21:26)
[2018-09-28] MEDS: FLUTICASONE PROPIONATE INH SCH (08:24)
[2018-09-28] MEDS: IRON SUCROSE COMPLEX 100MG/5ML IV SCH (08:24)
[2018-09-28] MEDS: FAMOTIDINE 20 MG/2 ML IVPush SCH (11:56)
[2018-09-28] MEDS: morphine SULFATE 10 MG/ML, 1ML IVPush PRN ×3 (11:57→23:50)
[2018-09-28] MEDS: LORazepam 2 MG/ML, 1ML IVPush PRN ×3 (12:00→23:56)
[2018-09-29] MEDS: ALBUTEROL/IPRATROPIUM 2.5MG/0.5MG, 3 ML NPPB SCH ×6 (03:00→19:13)
[2018-09-29 04:17] LABS: MEAN CORPUSCULAR HEMOGLOBIN 27.1 pg (27.0-34.8); MEAN CORPUSCULAR HGB CONC 31.5 g/dL (32.4-35.8); MEAN PLATELET VOLUME 8.1 fL (7.4-10.4); PLATELET COUNT 274 x10^3/uL (130-400); RED BLOOD COUNT 3.46 x10^6/uL (3.82-5.3); RED CELL DISTRIBUTION WIDTH 23.3 % (9.6-15.2)
[2018-09-29 04:28] LABS: ANION GAP 4 mmol/L (5-15); CALCIUM 8.8 mg/dL (8.5-10.1); CHLORIDE 102 mmol/L (98-107); CREATININE 1.17 mg/dL (0.55-1.02)
[2018-09-29 04:38] LABS: BASOPHILS # (AUTO) 0.07 x10^3/uL (0-0.1); BASOPHILS % (AUTO) 1 % (0-1); EOSINOPHILS # (AUTO) 0.08 x10^3/uL (0-0.4); EOSINOPHILS % (AUTO) 1 % (1-7); LYMPHOCYTES # (AUTO) 0.67 x10^3/uL (1-3.4); LYMPHOCYTES % (AUTO) 7 % (22-44); MD MORPH REVIEW ONLY; MONOCYTES # (AUTO) 0.99 x10^3/uL (0.2-0.8); MONOCYTES % (AUTO) 11 % (2-9); NEUTROPHILS # (AUTO) 7.32 x10^3/uL (1.8-6.8); NEUTROPHILS % (AUTO) 80 % (42-75)
[2018-09-29 04:43] LABS: ANISOCYTOSIS 2+; HYPOCHROMIA 1+; MICROCYTOSIS 1+; POLYCHROMASIA 1+; TARGET CELLS 1+
[2018-09-29 04:57] LABS: <PLATELET ESTIMATE> ADEQUATE; <PLT MORPHOLOGY> NORMAL PLT MORPH
[2018-09-29] MEDS: CARVEDILOL 3.125 MG TABLET PO SCH ×2 (05:29→17:37)
[2018-09-29] MEDS: morphine SULFATE 10 MG/ML, 1ML IVPush PRN (06:51)
[2018-09-29] MEDS: METOCLOPRAMIDE 5 MG/ML, 2ML IVPush SCH ×3 (08:30→20:26)
[2018-09-29] MEDS: FAMOTIDINE 20 MG/2 ML IVPush SCH (08:30)
[2018-09-29] MEDS: IRON SUCROSE COMPLEX 100MG/5ML IV SCH (08:30)
[2018-09-29] MEDS: BUDESONIDE 0.5 MG/2 ML INHA NPPB SCH ×2 (09:42→19:13)
[2018-09-29] MEDS: OXYcodone IR 5MG TABLET PO PRN ×2 (13:46→17:37)
[2018-09-29] MEDS ORDERED: SODIUM CHLORIDE 0.9%, 500ML IVBOLUS ONE (14:00)
[2018-09-29] MEDS ORDERED: ALBUTEROL/IPRATROPIUM 2.5MG/0.5MG, 3 ML NPPB SCH (16:00)
[2018-09-29] MEDS ORDERED: RIVAROXABAN 20 MG TABLET PO SCH (17:00)
[2018-09-29] MEDS: ACETAMINOPHEN 325 MG TABLET PO PRN (23:05)
[2018-09-30] MEDS: METOCLOPRAMIDE 5 MG/ML, 2ML IVPush SCH (02:45)
[2018-09-30 04:36] LABS: MEAN CORPUSCULAR HEMOGLOBIN 27.7 pg (27.0-34.8); MEAN CORPUSCULAR HGB CONC 31.4 g/dL (32.4-35.8); MEAN CORPUSCULAR VOLUME 88.2 fL (80-100); MEAN PLATELET VOLUME 8.4 fL (7.4-10.4); PLATELET COUNT 252 x10^3/uL (130-400); RED BLOOD COUNT 3.42 x10^6/uL (3.82-5.3); RED CELL DISTRIBUTION WIDTH 23.7 % (9.6-15.2)
[2018-09-30 04:39] LABS: ANION GAP 3 mmol/L (5-15); CALCIUM 8.5 mg/dL (8.5-10.1); CHLORIDE 103 mmol/L (98-107); CREATININE 0.98 mg/dL (0.55-1.02); TRIGLYCERIDES 106 mg/dL (50-200)
[2018-09-30 05:44] LABS: <PLATELET ESTIMATE> ADEQUATE; <PLT MORPHOLOGY> NORMAL PLT MORPH; ANISOCYTOSIS 2+; BASOPHILS # (AUTO) 0.05 x10^3/uL (0-0.1); BASOPHILS % (AUTO) 1 % (0-1); EOSINOPHILS # (AUTO) 0.32 x10^3/uL (0-0.4); EOSINOPHILS % (AUTO) 4 % (1-7); HYPOCHROMIA 1+; LYMPHOCYTES # (AUTO) 0.48 x10^3/uL (1-3.4); LYMPHOCYTES % (AUTO) 6 % (22-44); MD MORPH REVIEW ONLY; MICROCYTOSIS 1+; MONOCYTES # (AUTO) 0.74 x10^3/uL (0.2-0.8); MONOCYTES % (AUTO) 9 % (2-9); NEUTROPHILS # (AUTO) 7.09 x10^3/uL (1.8-6.8); NEUTROPHILS % (AUTO) 82 % (42-75); POLYCHROMASIA 1+; TARGET CELLS 1+
[2018-09-30] MEDS: ALBUTEROL/IPRATROPIUM 2.5MG/0.5MG, 3 ML NPPB SCH ×3 (07:20→22:20)
[2018-09-30] MEDS: BUDESONIDE 0.5 MG/2 ML INHA NPPB SCH ×2 (07:20→22:20)
[2018-09-30] MEDS: ACETAMINOPHEN 325 MG TABLET PO PRN (07:56)
[2018-09-30] MEDS: CARVEDILOL 3.125 MG TABLET PO SCH ×2 (09:00→17:01)
[2018-09-30] MEDS: FERROUS SULFATE 325 MG TABLET PO SCH ×2 (09:24→18:43)
[2018-09-30] MEDS: OXYcodone IR 5MG TABLET PO PRN ×3 (12:51→23:20)
[2018-09-30 16:34] VITALS: BP 110/53
[2018-09-30] MEDS ORDERED: FUROSEMIDE 20 MG/2 ML IV ONE (17:30)
[2018-09-30] MEDS: RIVAROXABAN 15 MG TABLET PO SCH (18:47)
[2018-09-30 19:07] VITALS: BP 114/58
[2018-10-01 00:35] VITALS: BP 115/67
[2018-10-01 05:34] LABS: MEAN CORPUSCULAR HEMOGLOBIN 27.7 pg (27.0-34.8); MEAN CORPUSCULAR HGB CONC 31.4 g/dL (32.4-35.8); MEAN PLATELET VOLUME 8.4 fL (7.4-10.4); PLATELET COUNT 259 x10^3/uL (130-400); RED BLOOD COUNT 3.35 x10^6/uL (3.82-5.3); RED CELL DISTRIBUTION WIDTH 24.4 % (9.6-15.2)
[2018-10-01 05:36] LABS: CALCIUM 8.6 mg/dL (8.5-10.1); CHLORIDE 101 mmol/L (98-107)
[2018-10-01 05:39] LABS: ANION GAP 2 mmol/L (5-15)
[2018-10-01 06:03] LABS: BASOPHILS % (AUTO) 0 % (0-1); EOSINOPHILS # (AUTO) 0.31 x10^3/uL (0-0.4); EOSINOPHILS % (AUTO) 4 % (1-7); LYMPHOCYTES % (AUTO) 7 % (22-44); MD SCAN; MONOCYTES # (AUTO) 0.62 x10^3/uL (0.2-0.8); MONOCYTES % (AUTO) 7 % (2-9); NEUTROPHILS # (AUTO) 7.14 x10^3/uL (1.8-6.8); NEUTROPHILS % (AUTO) 82 % (42-75)
[2018-10-01] MEDS: CARVEDILOL 3.125 MG TABLET PO SCH ×2 (06:15→17:48)
[2018-10-01] MEDS: OXYcodone IR 5MG TABLET PO PRN ×4 (06:20→22:52)
[2018-10-01] MEDS: ALBUTEROL/IPRATROPIUM 2.5MG/0.5MG, 3 ML NPPB SCH ×3 (06:42→19:43)
[2018-10-01] MEDS: BUDESONIDE 0.5 MG/2 ML INHA NPPB SCH ×2 (06:42→19:44)
[2018-10-01 07:20] VITALS: BP 105/54
[2018-10-01] MEDS: FERROUS SULFATE 325 MG TABLET PO SCH ×2 (08:40→17:49)
[2018-10-01 12:55] VITALS: BP 112/70
[2018-10-01] MEDS: RIVAROXABAN 15 MG TABLET PO SCH (17:48)
[2018-10-01 17:56] LABS: MEAN CORPUSCULAR HGB CONC 31.9 g/dL (32.4-35.8); MEAN CORPUSCULAR VOLUME 87.8 fL (80-100); MEAN PLATELET VOLUME 8.2 fL (7.4-10.4); PLATELET COUNT 285 x10^3/uL (130-400); RED BLOOD COUNT 3.36 x10^6/uL (3.82-5.3); RED CELL DISTRIBUTION WIDTH 23.8 % (9.6-15.2)
[2018-10-01 17:58] LABS: BASOPHILS # (AUTO) 0.02 x10^3/uL (0-0.1); BASOPHILS % (AUTO) 0 % (0-1); EOSINOPHILS # (AUTO) 0.25 x10^3/uL (0-0.4); EOSINOPHILS % (AUTO) 2 % (1-7); LYMPHOCYTES # (AUTO) 0.64 x10^3/uL (1-3.4); LYMPHOCYTES % (AUTO) 6 % (22-44); MD MORPH REVIEW ONLY; MONOCYTES # (AUTO) 0.82 x10^3/uL (0.2-0.8); MONOCYTES % (AUTO) 8 % (2-9); NEUTROPHILS # (AUTO) 8.74 x10^3/uL (1.8-6.8); NEUTROPHILS % (AUTO) 83 % (42-75)
[2018-10-01 18:00] LABS: ANISOCYTOSIS 2+; MICROCYTOSIS 1+
[2018-10-01 18:01] LABS: <PLATELET ESTIMATE> ADEQUATE; <PLT MORPHOLOGY> NORMAL PLT MORPH; BASOPHILLIC STIPPLING 1+; HYPOCHROMIA 1+; OVALOCYTES 1+; POLYCHROMASIA 1+
[2018-10-01 18:50] VITALS: BP 103/60
[2018-10-02 02:34] VITALS: BP 113/68
[2018-10-02 03:21] LABS: MEAN CORPUSCULAR HEMOGLOBIN 27.7 pg (27.0-34.8); MEAN CORPUSCULAR HGB CONC 31.3 g/dL (32.4-35.8); MEAN CORPUSCULAR VOLUME 88.5 fL (80-100); MEAN PLATELET VOLUME 8.1 fL (7.4-10.4); PLATELET COUNT 246 x10^3/uL (130-400); RED BLOOD COUNT 2.78 x10^6/uL (3.82-5.3); RED CELL DISTRIBUTION WIDTH 24.6 % (9.6-15.2)
[2018-10-02 03:22] LABS: ANION GAP 1 mmol/L (5-15); CALCIUM 8.3 mg/dL (8.5-10.1); CHLORIDE 102 mmol/L (98-107); CREATININE 0.82 mg/dL (0.55-1.02)
[2018-10-02 04:02] LABS: BASOPHILS % (AUTO) 0 % (0-1); EOSINOPHILS # (AUTO) 0.46 x10^3/uL (0-0.4); EOSINOPHILS % (AUTO) 6 % (1-7); LYMPHOCYTES # (AUTO) 0.66 x10^3/uL (1-3.4); LYMPHOCYTES % (AUTO) 9 % (22-44); MD MORPH REVIEW ONLY; MONOCYTES # (AUTO) 0.72 x10^3/uL (0.2-0.8); MONOCYTES % (AUTO) 10 % (2-9); NEUTROPHILS # (AUTO) 5.54 x10^3/uL (1.8-6.8); NEUTROPHILS % (AUTO) 75 % (42-75)
[2018-10-02 04:03] LABS: ANISOCYTOSIS 2+; HYPOCHROMIA 1+; MICROCYTOSIS 1+; OVALOCYTES 1+; POLYCHROMASIA 1+
[2018-10-02 04:04] LABS: <PLATELET ESTIMATE> ADEQUATE; BASOPHILLIC STIPPLING 1+
[2018-10-02 04:05] LABS: <PLT MORPHOLOGY> NORMAL PLT MORPH
[2018-10-02 05:50] VITALS: BP 105/59
[2018-10-02] MEDS: OXYcodone IR 5MG TABLET PO PRN ×3 (06:02→20:52)
[2018-10-02] MEDS: CARVEDILOL 3.125 MG TABLET PO SCH ×2 (06:02→18:00)
[2018-10-02] MEDS: OMEPRAZOLE 20 MG CAPSULE.DR PO SCH (06:02)
[2018-10-02] MEDS: BUDESONIDE 0.5 MG/2 ML INHA NPPB SCH ×2 (07:00→18:07)
[2018-10-02] MEDS: ALBUTEROL/IPRATROPIUM 2.5MG/0.5MG, 3 ML NPPB SCH ×3 (07:00→18:07)
[2018-10-02 07:40] VITALS: BP 95/56
[2018-10-02] MEDS: FERROUS SULFATE 325 MG TABLET PO SCH ×2 (07:57→17:59)
[2018-10-02] MEDS: PANTOPRAZOLE 40 MG IV IVPush SCH ×2 (07:57→19:30)
[2018-10-02] MEDS ORDERED: OMNIPAQUE 350 MG/ML, 100ML BOTTLE ONE (09:09)
[2018-10-02 15:00] VITALS: BP 96/47
[2018-10-02 19:59] VITALS: BP 102/55
[2018-10-03] VITALS (13 sets, daily range): BP systolic 92–115; BP diastolic 37–66
[2018-10-03] MEDS: OXYcodone IR 5MG TABLET PO PRN ×4 (02:06→20:59)
[2018-10-03] MEDS: CARVEDILOL 3.125 MG TABLET PO SCH ×2 (06:00→17:53)
[2018-10-03] MEDS: OMEPRAZOLE 20 MG CAPSULE.DR PO SCH (06:02)
[2018-10-03] MEDS: BUDESONIDE 0.5 MG/2 ML INHA NPPB SCH ×2 (09:00→21:44)
[2018-10-03] MEDS: ALBUTEROL/IPRATROPIUM 2.5MG/0.5MG, 3 ML NPPB SCH ×3 (09:00→21:43)
[2018-10-03] MEDS: PANTOPRAZOLE 40 MG IV IVPush SCH ×2 (09:08→19:55)
[2018-10-03] MEDS: FERROUS SULFATE 325 MG TABLET PO SCH ×2 (09:08→17:34)
[2018-10-03] MEDS: MOVIPREP POWDER 1 PREP KIT PO SCH (17:35)
[2018-10-03] MEDS: NS + 20MEQ KCL 1,000 ML IV SCH (18:46)
[2018-10-04] VITALS (7 sets, daily range): BP systolic 83–101; BP diastolic 49–59
[2018-10-04] MEDS: MOVIPREP POWDER 1 PREP KIT PO SCH ×3 (02:56→19:23)
[2018-10-04 06:01] LABS: ANION GAP 4 mmol/L (5-15); CHLORIDE 109 mmol/L (98-107); CREATININE 0.83 mg/dL (0.55-1.02)
[2018-10-04] MEDS: OXYcodone IR 5MG TABLET PO PRN ×3 (06:04→23:44)
[2018-10-04] MEDS: CARVEDILOL 3.125 MG TABLET PO SCH ×2 (06:04→18:02)
[2018-10-04] MEDS: OMEPRAZOLE 20 MG CAPSULE.DR PO SCH (06:04)
[2018-10-04 06:14] LABS: MEAN CORPUSCULAR HEMOGLOBIN 28.7 pg (27.0-34.8); MEAN CORPUSCULAR HGB CONC 31.7 g/dL (32.4-35.8); MEAN CORPUSCULAR VOLUME 90.7 fL (80-100); MEAN PLATELET VOLUME 8.3 fL (7.4-10.4); PLATELET COUNT 277 x10^3/uL (130-400); RED BLOOD COUNT 3.28 x10^6/uL (3.82-5.3); RED CELL DISTRIBUTION WIDTH 22.7 % (9.6-15.2)
[2018-10-04 07:53] LABS: BASOPHILS # (AUTO) 0.04 x10^3/uL (0-0.1); BASOPHILS % (AUTO) 1 % (0-1); EOSINOPHILS # (AUTO) 0.12 x10^3/uL (0-0.4); EOSINOPHILS % (AUTO) 2 % (1-7); LYMPHOCYTES # (AUTO) 0.39 x10^3/uL (1-3.4); LYMPHOCYTES % (AUTO) 5 % (22-44); MD SCAN; MONOCYTES # (AUTO) 0.93 x10^3/uL (0.2-0.8); MONOCYTES % (AUTO) 11 % (2-9); NEUTROPHILS # (AUTO) 6.79 x10^3/uL (1.8-6.8); NEUTROPHILS % (AUTO) 82 % (42-75)
[2018-10-04] MEDS: FERROUS SULFATE 325 MG TABLET PO SCH ×2 (08:00→17:13)
[2018-10-04] MEDS: NS + 20MEQ KCL 1,000 ML IV SCH ×2 (08:11→21:29)
[2018-10-04] MEDS: PANTOPRAZOLE 40 MG IV IVPush SCH (08:20)
[2018-10-04] MEDS: BUDESONIDE 0.5 MG/2 ML INHA NPPB SCH ×2 (08:43→19:10)
[2018-10-04] MEDS: ALBUTEROL/IPRATROPIUM 2.5MG/0.5MG, 3 ML NPPB SCH ×3 (08:43→19:10)
[2018-10-04] MEDS ORDERED: MIDAZOLAM 1 MG/ML, 5ML ONE (10:08)
[2018-10-04] MEDS ORDERED: FENTANYL PF 100 MCG/2ML ONE (10:08)
[2018-10-04] MEDS ORDERED: EPINEPHRINE SYRINGE 0.1 MG/ML, 10ML ONE (11:45)
[2018-10-04] MEDS: ERGOCALCIFEROL 50,000 UNIT CAPSULE PO SCH (17:14)
[2018-10-04] MEDS: ACETAMINOPHEN 325 MG TABLET PO PRN (18:02)
[2018-10-05 00:52] VITALS: BP 101/59
[2018-10-05 04:16] LABS: BASOPHILS # (AUTO) 0.01 x10^3/uL (0-0.1); BASOPHILS % (AUTO) 0 % (0-1); EOSINOPHILS # (AUTO) 0.19 x10^3/uL (0-0.4); EOSINOPHILS % (AUTO) 4 % (1-7); LYMPHOCYTES # (AUTO) 0.59 x10^3/uL (1-3.4); LYMPHOCYTES % (AUTO) 11 % (22-44); MD NO; MEAN CORPUSCULAR HEMOGLOBIN 28.3 pg (27.0-34.8); MEAN CORPUSCULAR HGB CONC 30.8 g/dL (32.4-35.8); MEAN CORPUSCULAR VOLUME 91.8 fL (80-100); MEAN PLATELET VOLUME 8.6 fL (7.4-10.4); MONOCYTES # (AUTO) 0.93 x10^3/uL (0.2-0.8); MONOCYTES % (AUTO) 17 % (2-9); NEUTROPHILS # (AUTO) 3.81 x10^3/uL (1.8-6.8); NEUTROPHILS % (AUTO) 69 % (42-75); PLATELET COUNT 316 x10^3/uL (130-400); RED BLOOD COUNT 3.17 x10^6/uL (3.82-5.3); RED CELL DISTRIBUTION WIDTH 21.9 % (9.6-15.2)
[2018-10-05 04:19] LABS: ANION GAP 4 mmol/L (5-15); CALCIUM 7.5 mg/dL (8.5-10.1); CHLORIDE 110 mmol/L (98-107); CREATININE 0.81 mg/dL (0.55-1.02)
[2018-10-05 05:40] VITALS: BP 107/69
[2018-10-05] MEDS: CARVEDILOL 3.125 MG TABLET PO SCH ×2 (05:41→17:42)
[2018-10-05] MEDS: OMEPRAZOLE 20 MG CAPSULE.DR PO SCH (05:41)
[2018-10-05] MEDS: OXYcodone IR 5MG TABLET PO PRN ×3 (06:27→21:40)
[2018-10-05 06:31] VITALS: BP 100/56
[2018-10-05] MEDS: BUDESONIDE 0.5 MG/2 ML INHA NPPB SCH ×2 (07:42→19:35)
[2018-10-05] MEDS: ALBUTEROL/IPRATROPIUM 2.5MG/0.5MG, 3 ML NPPB SCH ×3 (07:42→19:35)
[2018-10-05] MEDS: FERROUS SULFATE 325 MG TABLET PO SCH ×2 (08:29→16:48)
[2018-10-05] MEDS: MOVIPREP POWDER 1 PREP KIT PO SCH ×2 (08:29→19:39)
[2018-10-05] MEDS: ELLIPTA INH SCH (11:14)
[2018-10-05] MEDS: DOCUSATE 100 MG CAPSULE PO PRN (11:25)
[2018-10-05 14:06] VITALS: BP 99/59
[2018-10-05 18:56] VITALS: BP 104/62
[2018-10-06 01:12] VITALS: BP 104/69
[2018-10-06 05:19] LABS: ANION GAP 2 mmol/L (5-15); CHLORIDE 111 mmol/L (98-107); CREATININE 0.85 mg/dL (0.55-1.02)
[2018-10-06 05:38] LABS: BASOPHILS # (AUTO) 0.23 x10^3/uL (0-0.1); BASOPHILS % (AUTO) 3 % (0-1); EOSINOPHILS # (AUTO) 0.17 x10^3/uL (0-0.4); EOSINOPHILS % (AUTO) 3 % (1-7); LYMPHOCYTES # (AUTO) 0.82 x10^3/uL (1-3.4); LYMPHOCYTES % (AUTO) 12 % (22-44); MD SCAN; MEAN CORPUSCULAR HEMOGLOBIN 29.6 pg (27.0-34.8); MEAN CORPUSCULAR HGB CONC 31.9 g/dL (32.4-35.8); MEAN CORPUSCULAR VOLUME 92.8 fL (80-100); MEAN PLATELET VOLUME 9.3 fL (7.4-10.4); MONOCYTES # (AUTO) 0.65 x10^3/uL (0.2-0.8); MONOCYTES % (AUTO) 10 % (2-9); NEUTROPHILS # (AUTO) 4.88 x10^3/uL (1.8-6.8); NEUTROPHILS % (AUTO) 72 % (42-75); PLATELET COUNT 327 x10^3/uL (130-400); RED BLOOD COUNT 3.19 x10^6/uL (3.82-5.3)
[2018-10-06 05:52] VITALS: BP 104/56
[2018-10-06] MEDS: OMEPRAZOLE 20 MG CAPSULE.DR PO SCH (05:54)
[2018-10-06] MEDS: OXYcodone IR 5MG TABLET PO PRN ×2 (05:54→10:47)
[2018-10-06] MEDS: CARVEDILOL 3.125 MG TABLET PO SCH (05:54)
[2018-10-06 06:42] VITALS: BP 90/50
[2018-10-06] MEDS ORDERED: DOCU-131 PO (07:32)
[2018-10-06] MEDS ORDERED: FERR-51 PO (07:32)
[2018-10-06] MEDS ORDERED: OXYC5TAB3 PO (07:32)
[2018-10-06] MEDS ORDERED: CARV3.1212 PO (07:32)
[2018-10-06] MEDS ORDERED: RIVA20TA PO (07:47)
[2018-10-06] MEDS: ELLIPTA INH SCH (08:05)
[2018-10-06] MEDS: FERROUS SULFATE 325 MG TABLET PO SCH (08:05)
[2018-10-06] MEDS: MOVIPREP POWDER 1 PREP KIT PO SCH (08:05)
[2018-10-06] MEDS: ALBUTEROL/IPRATROPIUM 2.5MG/0.5MG, 3 ML NPPB SCH (09:00)
[2018-10-06] MEDS: BUDESONIDE 0.5 MG/2 ML INHA NPPB SCH (09:00)
== END 2018-10-06 10:57 | disposition home health service (06) | DRG 329 ==
LOC: ED 12:33 → EDIP 13:11 → 5SO 13:43 → CCU 09-27 15:01 → 4WST 09-30 17:37
PROVIDERS: ADMIT Hospitalist; ATTEND Hospitalist
PROC: 0DBK8ZX Excision of Ascending Colon, Via Natural or Artificial Opening Endoscopic, Diagnostic (ICD-10-PCS; 2018-09-24)
PROC: 0DBL8ZZ Excision of Transverse Colon, Via Natural or Artificial Opening Endoscopic (ICD-10-PCS; 2018-09-24)
PROC: 0DBM8ZZ Excision of Descending Colon, Via Natural or Artificial Opening Endoscopic (ICD-10-PCS; 2018-09-24)
PROC: 0DBN8ZZ Excision of Sigmoid Colon, Via Natural or Artificial Opening Endoscopic (ICD-10-PCS; 2018-09-24)
PROC: 0DB58ZX Excision of Esophagus, Via Natural or Artificial Opening Endoscopic, Diagnostic (ICD-10-PCS; principal; 2018-09-24 10:30)
PROC: 0DTF4ZZ Resection of Right Large Intestine, Percutaneous Endoscopic Approach (ICD-10-PCS; 2018-09-27)
PROC: 0DB98ZX Excision of Duodenum, Via Natural or Artificial Opening Endoscopic, Diagnostic (ICD-10-PCS; 2018-09-27)
PROC: 0W3P8ZZ Control Bleeding in Gastrointestinal Tract, Via Natural or Artificial Opening Endoscopic (ICD-10-PCS; 2018-10-04)
PROC: 30233N1 Transfusion of Nonautologous Red Blood Cells into Peripheral Vein, Percutaneous Approach (ICD-10-PCS; 2018-10-04)
DX: C18.2 Malignant neoplasm of ascending colon (principal); I50.41 Acute combined systolic (congestive) and diastolic (congestive) heart failure; J96.21 Acute and chronic respiratory failure with hypoxia; D68.69 Other thrombophilia; Z99.11 Dependence on respirator [ventilator] status; N25.81 Secondary hyperparathyroidism of renal origin; E46 Unspecified protein-calorie malnutrition; D62 Acute posthemorrhagic anemia; D12.3 Benign neoplasm of transverse colon; K57.30 Diverticulosis of large intestine without perforation or abscess without bleeding; D12.5 Benign neoplasm of sigmoid colon; D12.4 Benign neoplasm of descending colon; I11.0 Hypertensive heart disease with heart failure; I34.0 Nonrheumatic mitral (valve) insufficiency; K44.9 Diaphragmatic hernia without obstruction or gangrene; K22.70 Barrett's esophagus without dysplasia; J44.9 Chronic obstructive pulmonary disease, unspecified; I73.9 Peripheral vascular disease, unspecified; T46.0X5A Adverse effect of cardiac-stimulant glycosides and drugs of similar action, initial encounter; E55.9 Vitamin D deficiency, unspecified; F17.210 Nicotine dependence, cigarettes, uncomplicated; I27.29 Other secondary pulmonary hypertension; I27.81 Cor pulmonale (chronic); I48.2 Chronic atrial fibrillation; F10.10 Alcohol abuse, uncomplicated; Z99.81 Dependence on supplemental oxygen; Z90.710 Acquired absence of both cervix and uterus; Z87.19 Personal history of other diseases of the digestive system; Z87.11 Personal history of peptic ulcer disease; Z86.718 Personal history of other venous thrombosis and embolism; Z79.01 Long term (current) use of anticoagulants; Y92.89 Other specified places as the place of occurrence of the external cause; Z88.8 Allergy status to other drugs, medicaments and biological substances
CPT/HCPCS: 36415; 36600; 71045; 71275; 74177; 78452; 80048; 80053; 80162; 81001; 82272; 82378; 82728; 82803; 83540; 83550; 83735; 83880; 84100; 84478; 84484; 85014; 85018; 85025; 85520; 85610; 86850; 86900; 86923; 87070; 87081; 87205; 88305; 93005; 93017; 93306; 93970; 94003; 94640; 96374; 99152; 99153; G0378; J0696; J1644; J1756; J1940; J2250; J2405; J2704; J2785; J3010; J3480; J3490; J7620; J7626; Q9967; A4648; A9502; C9113; C9898; J0330; J1120; J2060; J2270; J2370; J2765; J7040; P9016

== ENCOUNTER 2018-12-12 07:33 | Outpatient (CLI) | payer MEDICARE ==
[~2018-12-12 07:33] MED LIST changes: +ALBU8.5H8 INH; +ANORO; +CARV3.1212 PO; +CHOL400C11 PO; +DOCU-131 PO; +FERR-51 PO; +IPRA3AMP30 INH; +IPRATROPIUM; +OXYC5TAB3 PO; +PROAIR; +SPIR50TA4 PO
== END 2018-12-12 23:59 | disposition home or self-care (01) ==
LOC: CVU 07:33
PROVIDERS: ATTEND Nurse Practitioner Family
DX: I65.21 Occlusion and stenosis of right carotid artery (principal); J44.9 Chronic obstructive pulmonary disease, unspecified; I48.91 Unspecified atrial fibrillation; I10 Essential (primary) hypertension
CPT/HCPCS: 93880

== ENCOUNTER 2019-01-20 19:56 | Emergency (ER) | payer MEDICARE ==
[~2019-01-20] VITALS: Ht 165.1 cm; Wt 59.1 kg
--- NOTE | 2019-01-20 20:08 | NUR ---
ELEUTERIO CLAROS FOR GLF ON XARELTO, +ETOH - 3 BEERS AT [facility], PT PLACED ON MONITOR, EKG DONE. CALL GOPI FALCON
[2019-01-20] MEDS ORDERED: DIPH,PERTUSS(ACELL),TET VAC/PF NC IM-VACC ONE (21:00)
[2019-01-20 21:03] VITALS: BP 133/68
--- NOTE | 2019-01-20 21:04 | NUR ---
PT TO CT
[2019-01-20] MEDS ORDERED: DIPH,PERTUSS(ACELL),TET VAC/PF 0.5 ML IM-VACC ONE (21:06)
[2019-01-20 21:12] LABS: BASOPHILS # (AUTO) 0.03 x10^3/uL (0-0.1); BASOPHILS % (AUTO) 0 % (0-1); EOSINOPHILS # (AUTO) 0.19 x10^3/uL (0-0.4); EOSINOPHILS % (AUTO) 3 % (1-7); LYMPHOCYTES # (AUTO) 1.45 x10^3/uL (1-3.4); LYMPHOCYTES % (AUTO) 19 % (22-44); MD NO; MEAN CORPUSCULAR HGB CONC 33.2 g/dL (32.4-35.8); MEAN CORPUSCULAR VOLUME 93.6 fL (80-100); MEAN PLATELET VOLUME 7.7 fL (7.4-10.4); MONOCYTES # (AUTO) 0.79 x10^3/uL (0.2-0.8); MONOCYTES % (AUTO) 10 % (2-9); NEUTROPHILS # (AUTO) 5.17 x10^3/uL (1.8-6.8); NEUTROPHILS % (AUTO) 68 % (42-75); PLATELET COUNT 241 x10^3/uL (130-400); RED BLOOD COUNT 4.76 x10^6/uL (3.82-5.3); RED CELL DISTRIBUTION WIDTH 14.3 % (9.6-15.2)
[2019-01-20 21:23] LABS: INTERNATIONAL NORMALIZED RATIO 1.14 (0.93-1.1); PROTHROMBIN TIME 11.9 Seconds (9.6-11.5)
[2019-01-20 21:24] LABS: ALBUMIN 3.7 g/dL (3.4-5.0); ANION GAP 8 mmol/L (5-15); CHLORIDE 91 mmol/L (98-107); CREATININE 1.03 mg/dL (0.55-1.02)
[2019-01-20 21:27] LABS: TROPONIN I 0.029 ng/mL (0.000-0.045)
[2019-01-20] MEDS ORDERED: NEOSPORIN OINT. PKT 1 PACKET ONE ×3 (21:58→22:16)
--- NOTE | 2019-01-20 22:49 | NUR ---
Pt ambulated in hallway on 3L O2, same as home O2. Pt ambualted well with strong steady gait.
== END 2019-01-20 23:53 | disposition home or self-care (01) ==
LOC: ED 23:22
DX: S06.0X0A Concussion without loss of consciousness, initial encounter (principal); S00.01XA Abrasion of scalp, initial encounter; J44.9 Chronic obstructive pulmonary disease, unspecified; I48.91 Unspecified atrial fibrillation; I11.0 Hypertensive heart disease with heart failure; I50.9 Heart failure, unspecified; Z86.718 Personal history of other venous thrombosis and embolism; Z87.891 Personal history of nicotine dependence; Z90.710 Acquired absence of both cervix and uterus; W01.0XXA Fall on same level from slipping, tripping and stumbling without subsequent striking against object, initial encounter; Y93.89 Activity, other specified; Y92.009 Unspecified place in unspecified non-institutional (private) residence as the place of occurrence of the external cause; Y99.8 Other external cause status
CPT/HCPCS: 36415; 70450; 71045; 72125; 80048; 82040; 84484; 85025; 85610; 85730; 90471; 90715; 93005

== ENCOUNTER 2019-08-29 10:41 | Emergency (ER) | payer MEDICARE ==
[~2019-08-29] VITALS: Ht 162.6 cm; Wt 60.9 kg
[~2019-08-29 10:41] MED LIST changes: -DIGO250T PO; +DIGO250T3 PO; +SIMV20TA19 PO; -SIMV20TA3 PO
--- NOTE | 2019-08-29 11:02 | NUR ---
ELEUTERIO CLAROS PT WITH NOSEBLEED STARTING 0700 THIS AM, ON XARELTO. PT WITH NOSEBLEED 1 WK AGO WENT TO [facility], THEY PLACED PACKING AND IT WAS IN FOR ONE WEEK. PT STATES SHE HAS HAD 2-3 NOSEBLEEDS SINCE REMOVAL OF THE PACKING
[2019-08-29] MEDS ORDERED: TRANEXAMIC ACID 100 MG/ML, 10ML ONE (11:15)
[2019-08-29] MEDS ORDERED: TRANEXAMIC ACID 100 MG/ML, 10ML TP ONE (11:30)
--- NOTE | 2019-08-29 12:09 | NUR ---
ERMD REMOVED PACKING, WAITING TO RECHECK. NO NEEDS AT THIS TIME
--- NOTE | 2019-08-29 13:02 | NUR ---
FIRST CONTACT. ROBERTO WARREN IS DISCHARGING THE PT. FOR THE PRIMARY CARE RN. PT. WAS GIVEN DISCHARGE INSTRUCTIONS WITH UNDERSTANDING VERBALIZED ALONG WITH WILLINGNESS TO COMPLY. PT. WAS TAKEN TO HER VEHICLE BY WHEEL CHAIR.
[2019-08-29 13:04] VITALS: BP 127/73
== END 2019-08-29 13:07 | disposition home or self-care (01) ==
LOC: ED 11:58
DX: R04.0 Epistaxis (principal); I11.0 Hypertensive heart disease with heart failure; I50.9 Heart failure, unspecified; I48.91 Unspecified atrial fibrillation; J43.9 Emphysema, unspecified; Z87.891 Personal history of nicotine dependence; Z90.710 Acquired absence of both cervix and uterus
CPT/HCPCS: 99283

== ENCOUNTER 2019-08-29 16:46 | Emergency (ER) | payer MEDICARE ==
[~2019-08-29] VITALS: Ht 162.6 cm; Wt 60.9 kg
[2019-08-29 16:49] VITALS: BP 159/78
--- NOTE | 2019-08-29 17:45 | NUR ---
PT HERE EARLIER TODAY FOR EPISTAXIS, PT DC'D HOME S/T TXA. PT STATES HER NOSE BEGAN BLEEDING RIGHT WHEN SHE RETURNED HOME APPOX [id number]. PT ARRIVES WITH NOSECLAMP IN PLACE
[2019-08-29] MEDS ORDERED: LIDOCAINE-MPF 2% ,5ML ONE (17:47)
[2019-08-29] MEDS ORDERED: LIDOCAINE 2%, 10ML INFIL ONE (18:00)
== END 2019-08-29 18:56 | disposition home or self-care (01) ==
LOC: ED 18:40
DX: R04.0 Epistaxis (principal); I11.0 Hypertensive heart disease with heart failure; I50.9 Heart failure, unspecified; I48.91 Unspecified atrial fibrillation; J43.9 Emphysema, unspecified; Z90.710 Acquired absence of both cervix and uterus; Z87.891 Personal history of nicotine dependence
CPT/HCPCS: 30901; 99284

== ENCOUNTER 2019-09-05 10:48 | Emergency (ER) | payer MEDICARE ==
[~2019-09-05] VITALS: Ht 165.1 cm; Wt 60.0 kg
[2019-09-05 11:09] VITALS: BP 148/54
--- NOTE | 2019-09-05 11:16 | NUR ---
PATIENT BROUGHT BACK FROM TRIAGE FOR FOLLOW UP/REMOVAL OF NASAL BALLOON
--- NOTE | 2019-09-05 11:34 | NUR ---
RAHEL HUTCHINS AT BEDSIDE FOR BALLOON REMOVAL. NO BLEEDING AT THIS TIME.
--- NOTE | 2019-09-05 12:41 | NUR ---
DISCHARGE INSTRUCIONS REVIEWED
== END 2019-09-05 12:43 | disposition home or self-care (01) ==
LOC: ED 12:30
DX: R04.0 Epistaxis (principal); I11.0 Hypertensive heart disease with heart failure; I50.9 Heart failure, unspecified; J44.9 Chronic obstructive pulmonary disease, unspecified; Z87.891 Personal history of nicotine dependence; Z86.718 Personal history of other venous thrombosis and embolism
CPT/HCPCS: 99281